=== PATIENT | female | born 1950 | race Caucasian/White ===

== ENCOUNTER 2019-10-04 08:14 | Inpatient (IN) | payer OTHER ==
[~2019-10-04] VITALS: Ht 165.1 cm; Wt 79.4 kg
[~2019-10-04 08:14] MED LIST: CARI350T27 PO; IBUP-1955 PO; LEVO50TA8 PO; METF500T PO; METR500T PO; SIMV20TA2 PO
--- NOTE | 2019-10-04 08:24 | NUR ---
BIB RA C/O ABDOMINAL PAIN SINCE YESTERDAY, TO ER BED 10, HOOKED TO MONITOR, CHANGED TO HOSP GOWN, PROVIDED W WARM BLANKET, AOx4, BREATHING EVEN AND UNLABORED, NAD NOTED. AWAITING MD HUBBARD.
--- NOTE | 2019-10-04 09:15 | NUR ---
DR MACIEL AT BEDSIDE
[2019-10-04] MEDS ORDERED: MORPHINE SULFATE INJ 4 MG/ML DISP.SYRIN ONE (09:22)
[2019-10-04 09:24] LABS: BASOPHILS % (AUTO) 0.2 % (0.0-2.0); EOSINOPHILS % (AUTO) 0.1 % (0.0-6.0); HEMATOCRIT 32 % (33-45); HEMOGLOBIN 10.3 g/dL (11.5-14.8); LYMPHOCYTES # (AUTO) 0.5 /CMM (0.8-4.8); LYMPHOCYTES % (AUTO) 6.9 % (20.0-44.0); MEAN CORPUSCULAR HGB CONC 32 g/dl (31.0-36.0); MEAN CORPUSCULAR VOLUME 87 fL (82-100); MONOCYTES # (AUTO) 0.4 /CMM (0.1-1.30); MONOCYTES % (AUTO) 5.4 % (2.0-12.0); NEUTROPHILS # (AUTO) 5.7 /CMM (1.8-8.9); NEUTROPHILS % (AUTO) 87.4 % (43.0-81.0); PLATELET COUNT (AUTO) 173 /CMM (150-450); RED BLOOD CELL COUNT(AUTO) 3.64 MIL/uL (4.0-5.2); WHITE BLOOD COUNT (AUTO) 6.6 K/uL (4.3-11.0)
[2019-10-04 09:26] LABS: APPEARANCE,URINE Clear (CLEAR); BILIRUBIN,URINE Negative (NEGATIVE); BLOOD, URINE Negative Ery/uL (NEGATIVE); COLOR,URINE Yellow (YELLOW); KETONES,URINE Negative (NEGATIVE); LEUKOCYTE ESTERASE ,URINE Negative (NEGATIVE); NITRITE, URINE Negative (NEGATIVE); PH,URINE 7.5 (5.0-8.0); PROTEIN,URINE Negative (NEGATIVE); UGLUCOSE Negative (NEGATIVE); UROBILINOGEN,URINE 0.2 EU/dL (0.2)
[2019-10-04] MEDS ORDERED: ONDANSETRON HCL/PF 4 MG/2 ML VIAL ONE (09:27)
[2019-10-04 09:29] LABS: CALCIUM, SERUM 11.5 mg/dL (8.5-10.1); CARBON DIOXIDE 30 mmol/L (21-32); CHLORIDE 103 mmol/L (98-107); CREATININE 0.8 mg/dL (0.6-1.3); GLUCOSE 185 mg/dL (74-106); SODIUM SERUM 141 mmol/L (136-145); UREA NITROGEN, BLOOD 11 mg/dL (7-18)
[2019-10-04] MEDS ORDERED: MORPHINE SULFATE INJ 2 MG/ML DISP.SYRIN IV ONE ×2 (09:30)
[2019-10-04] MEDS ORDERED: IV NS 0.9% 1,000 ML BAG IV ONE (09:30)
[2019-10-04 09:41] LABS: ALANINE AMINOTRANSFERASE 33 U/L (12-78); ALBUMIN 3.5 g/dL (3.4-5.0); ALKALINE PHOSPHATASE 51 U/L (46-116); ASPARTATE AMINOTRANSFERASE 46 U/L (15-37); BILIRUBIN,DIRECT 0.8 mg/dL (0.0-0.2); TOTAL PROTEIN, SERUM 7.9 g/dL (6.4-8.2)
--- NOTE | 2019-10-04 09:47 | NUR ---
LIGHT ARMORED RECONNAISSANCE OFFICER AT BEDSIDE
[2019-10-04] MEDS ORDERED: CT SWABBABLE VALVE TRANS SET 1 EA INFUS.SET MC ONE (09:55)
[2019-10-04] MEDS ORDERED: IOHEXOL-300 100 ML VIAL IV ONE (09:55)
[2019-10-04] MEDS ORDERED: IV NS 0.9% 250 ML IV ONE (09:55)
[2019-10-04 10:44] LABS: LIPASE 46264 U/L (73-393)
[2019-10-04] MEDS ORDERED: PIPERACILLIN /TAZOBACTAM 3.375 G in IV D5W 50 ML IV ONE (11:30)
--- NOTE | 2019-10-04 11:33 | NUR ---
PAGED SURGERY PANTS MAKER.
[2019-10-04] MEDS ORDERED: PIPERACILLIN /TAZOBACTAM 3.375 G VIAL IV ONE (11:36)
--- NOTE | 2019-10-04 11:44 | NUR ---
CALLED NURSING SUP FOR M/S BED.
[2019-10-04] MEDS ORDERED: METO-357 PO (11:50)
[2019-10-04] MEDS ORDERED: LEVO75TA7 PO (11:50)
[2019-10-04] MEDS ORDERED: LISI-603 PO (11:50)
[2019-10-04] MEDS ORDERED: METF500T20 PO (11:50)
[2019-10-04] MEDS ORDERED: ATOR10TA PO (11:50)
--- NOTE | 2019-10-04 11:50 | NUR ---
PAGED [facility].
[2019-10-04] MEDS ORDERED: ONDANSETRON HCL/PF 4 MG/2 ML VIAL IV ONE (13:00)
--- NOTE | 2019-10-04 13:15 | NUR ---
NURSING SUP GAVE M/S BED 315-2.
--- NOTE | 2019-10-04 13:33 | NUR ---
REPORT GIVEN TO NATHALIE LEES OF MS UNIT
[2019-10-04] MEDS ORDERED: DEXTROSE 50%-WATER 50 ML DISP.SYRIN IV PRN (14:00)
[2019-10-04] MEDS ORDERED: hydrALAZINE HCL IV 20 MG VIAL IV PRN (14:00)
[2019-10-04] MEDS ORDERED: MAG HYDROX/AL HYDROX/SIMETH 30 ML UDC PO PRN (14:00)
[2019-10-04] MEDS ORDERED: MAGNESIUM HYDROXIDE 30 ML UDC PO PRN (14:00)
[2019-10-04] MEDS ORDERED: Z GUARD REMEDY 2 OZ OINT TP PRN (14:00)
[2019-10-04] MEDS ORDERED: *INSULIN REGULAR(HUMULIN R)HUM 100 UNIT/ML VIAL SQ PRN (14:00)
[2019-10-04] MEDS ORDERED: ACETAMINOPHEN 325 MG TABLET PO PRN (14:00)
[2019-10-04] MEDS ORDERED: ONDANSETRON HCL/PF 4 MG/2 ML VIAL IVP PRN (14:00)
[2019-10-04 14:15] VITALS: BP 128/72
--- NOTE | 2019-10-04 14:15 | NUR ---
Received patient awake alert and oriented x4. Breathing unlabored and even , saturation above 95 % on room air. Patient stated she has abdominal pain 4/10. Abdomen distended and firm.Patient steady and able to use bathroom with assistance. Patient adm. to med.surg and seen by Margaret Malik HEADING MACHINE OPERATOR. Plan of care discussed with the patient; patient verbalized understanding. Patient NPO , IV fluids ordered, IV line to the right AC G18 Flushing well. Skin inspected and intact. Safety precautions implemented and call light within reach. Will continue to monitor and f/u with adm.orders.
[2019-10-04] MEDS: IV D5/0.45 NACL 1,000 ML IV PRN (15:27)
[2019-10-04] MEDS: MORPHINE SULFATE INJ 2 MG/ML DISP.SYRIN IV PRN ×2 (15:51→20:12)
[2019-10-04 16:00] VITALS: BP 124/76
[2019-10-04] MEDS: BLOOD SUGAR DIAGNOSTIC 1 EACH STRIP VI SCH ×2 (17:30→22:17)
--- NOTE | 2019-10-04 19:16 | NUR ---
Report given to night club manager nurse
[2019-10-04 20:00] VITALS: BP 137/72
--- NOTE | 2019-10-04 20:00 | NUR ---
MS RN NOTES RECEIVED PATIENT AWAKE IN BED WITH NO DISTRESS NOTED. CALL LIGHT WITHIN REACH. FAMILY AT BEDSIDE. NO C/O PAIN OR DISCOMFORT. NPO STATUS OBSERVED AND MAINTAINED. PERIPHERAL LINE INTACT AND PATENT. ENCOURAGED USE OF CALL LIGHT FOR ASSISTANCE AND VERBALIZED GOOD UNDERSTANDING. BED IN LOW LOCK SETTING. ROOM FREE OF CUTTER AND BELONGINGS KEPT NEAR BEDSIDE. PATIENT VERBALIZED GOOD UNDERSTANDING. WILL CONTINUE TO MONITOR.
[2019-10-04] MEDS: PIPERACILLIN /TAZOBACTAM 3.375 G in IV D5W 100 ML IV SCH (20:11)
[2019-10-05] MEDS: MORPHINE SULFATE INJ 2 MG/ML DISP.SYRIN IV PRN ×4 (04:52→23:36)
[2019-10-05] MEDS: PIPERACILLIN /TAZOBACTAM 3.375 G in IV D5W 100 ML IV SCH ×3 (04:52→20:55)
[2019-10-05] MEDS: BLOOD SUGAR DIAGNOSTIC 1 EACH STRIP VI SCH ×4 (06:34→22:38)
--- NOTE | 2019-10-05 06:36 | NUR ---
MS RN NOTES PATIENT ASLEEP IN BED WITH NO DISTRESS NOTED. CALL LIGHT WITHIN REACH. ALL DUE MEDS GIVEN ORDERED WITH NO ASE. NO FURTHER C/O PAIN OR DISCOMFORT. PERIPHERAL LINES INTACT AND PATENT. NPO STATUS OBSERVED AND MAINTAINED AT ALL TIMES. BED IN LOW LOCK SETTING. ROOM FREE OF CLUTTER AND BELONGINGS KEPT NEAR BEDSIDE. WILL ENDORSE TO ONCOMING SHIFT.
[2019-10-05 07:03] LABS: BASOPHILS % (AUTO) 0.9 % (0.0-2.0); EOSINOPHILS % (AUTO) 1.6 % (0.0-6.0); HEMATOCRIT 27 % (33-45); HEMOGLOBIN 8.8 g/dL (11.5-14.8); LYMPHOCYTES # (AUTO) 0.7 /CMM (0.8-4.8); LYMPHOCYTES % (AUTO) 23.6 % (20.0-44.0); MEAN CORPUSCULAR HGB CONC 33 g/dl (31.0-36.0); MEAN CORPUSCULAR VOLUME 86 fL (82-100); MONOCYTES # (AUTO) 0.3 /CMM (0.1-1.30); MONOCYTES % (AUTO) 10.5 % (2.0-12.0); NEUTROPHILS # (AUTO) 1.9 /CMM (1.8-8.9); NEUTROPHILS % (AUTO) 63.4 % (43.0-81.0); PLATELET COUNT (AUTO) 129 /CMM (150-450); RED BLOOD CELL COUNT(AUTO) 3.13 MIL/uL (4.0-5.2)
[2019-10-05 07:32] LABS: ALBUMIN 2.9 g/dL (3.4-5.0); BILIRUBIN,TOTAL 1.2 mg/dL (0.2-1.0); CALCIUM, SERUM 9.5 mg/dL (8.5-10.1); CREATININE 0.8 mg/dL (0.6-1.3); MAGNESIUM 1.4 mg/dL (1.8-2.4); PHOSPHORUS 4.8 mg/dL (2.5-4.9); TOTAL PROTEIN, SERUM 6.8 g/dL (6.4-8.2)
[2019-10-05 08:00] VITALS: BP 146/70
[2019-10-05 08:00] LABS: POTASSIUM 2.6 mmol/L (3.5-5.1)
[2019-10-05] MEDS: POTASSIUM CL. PREMIX PERIPHER. 50 ML IV SCH ×5 (09:21→17:27)
[2019-10-05] MEDS ORDERED: Magnesium 1GM/D5W 100ML PREMIX 100 ML IV SCH (09:27)
[2019-10-05] MEDS ORDERED: POTASSIUM CHLORIDE 10 MEQ/50 ML PREMIXED IVPB FOR PERIPHERAL LINE IV SCH (10:00)
[2019-10-05] MEDS: IV D5/0.45 NACL 1,000 ML IV PRN (11:20)
[2019-10-05 14:12] LABS: BILIRUBIN,DIRECT 0.4 mg/dL (0.0-0.2); BILIRUBIN,TOTAL 1.2 mg/dL (0.2-1.0)
[2019-10-05 16:00] VITALS: BP 132/69
[2019-10-05] MEDS: MAGNESIUM OXIDE 400 MG TABLET PO SCH ×2 (17:56→22:26)
--- NOTE | 2019-10-05 18:27 | NUR ---
Patient resting in bed. VS are stable and within baseline , afebrile, on room air . Abdominal pain at tolerable level /10.Patient medicated as needed. Clear liquid diet tolerated well with N/V . IV fluids running as ordered, Potassium infusing as ordered. Safety precautions in place, call light within reach. Will endorse to next shift for OLIVE
--- NOTE | 2019-10-05 19:50 | NUR ---
RN NOTES RECEIVED PATIENT AWAKE, SITTING IN BED, FAMILY MEMBER AT BEDSIDE, NO SIGNS OF ACUTE DISTRESS NOTED, DENIES ANY PAIN OR DISCOMFORT AT THIS TIME, SAFETY MEASURES AT BEDSIDE, CALL LIGHT WITHIN EASY REACH, KEEP CLEAN DRY AND COMFORTABLE, IV ACCESS INTACT AND PATENT, ALL NEEDS ANTICIPATED, WILL CONTINUE TO MONITOR ACCORDINGLY.
[2019-10-05 20:32] VITALS: BP 157/81
[2019-10-06] MEDS: PIPERACILLIN /TAZOBACTAM 3.375 G in IV D5W 100 ML IV SCH ×3 (04:25→21:28)
[2019-10-06] MEDS: IV D5/0.45 NACL 1,000 ML IV PRN (06:02)
--- NOTE | 2019-10-06 07:15 | NUR ---
RN NOTES ALL NEEDS ATTENDED AND MET, ABLE TO REST AND SLEPT AT INTERVALS, SAFETY MEASURES IN PLACED, CALL LIGHT WITHIN EASY REACH. ENDORSED TO AM NURSE FOR CONTINUITY OF CARE.
[2019-10-06] MEDS: BLOOD SUGAR DIAGNOSTIC 1 EACH STRIP VI SCH ×4 (07:17→21:48)
--- NOTE | 2019-10-06 07:34 | NUR ---
MS RN OPENING NOTES RECEIVED PATIENT IN BED, AWAKE, A/O X 4. PATIENT BREATHING ON ROOM AIR WITH NO SIGNS OF DISTRESS OR SOB AT THIS TIME. PATIENT IN MILD PAIN. RAC GAUGE # 18 SL PRESENT AND INTACT. RFA # 22 INTACT INFUSING D5 1/2 NS AT 100 CC/HR. SAFETY PRECAUTIONS IN PLACE: BED IN LOW POSITION AND LOCKED, RAILS UP X 2, CALL LIGHT WITHIN REACH. WILL CONTINUE TO MONITOR PATIENT.
[2019-10-06 08:00] VITALS: BP 140/78
[2019-10-06 08:20] LABS: EOSINOPHILS % (AUTO) 4.6 % (0.0-6.0); HEMATOCRIT 26 % (33-45); HEMOGLOBIN 8.6 g/dL (11.5-14.8); LYMPHOCYTES # (AUTO) 0.8 /CMM (0.8-4.8); LYMPHOCYTES % (AUTO) 33.1 % (20.0-44.0); MEAN CORPUSCULAR HGB CONC 33 g/dl (31.0-36.0); MEAN CORPUSCULAR VOLUME 85 fL (82-100); MONOCYTES # (AUTO) 0.3 /CMM (0.1-1.30); MONOCYTES % (AUTO) 12.2 % (2.0-12.0); NEUTROPHILS # (AUTO) 1.2 /CMM (1.8-8.9); NEUTROPHILS % (AUTO) 49.1 % (43.0-81.0); PLATELET COUNT (AUTO) 128 /CMM (150-450); RED BLOOD CELL COUNT(AUTO) 3.11 MIL/uL (4.0-5.2); WHITE BLOOD COUNT (AUTO) 2.5 K/uL (4.3-11.0)
[2019-10-06 08:37] LABS: ALBUMIN 2.8 g/dL (3.4-5.0); BILIRUBIN,DIRECT 0.3 mg/dL (0.0-0.2); CALCIUM, SERUM 8.5 mg/dL (8.5-10.1); CREATININE 0.7 mg/dL (0.6-1.3); MAGNESIUM 1.5 mg/dL (1.8-2.4); PHOSPHORUS 3.9 mg/dL (2.5-4.9); POTASSIUM 2.9 mmol/L (3.5-5.1); TOTAL PROTEIN, SERUM 6.7 g/dL (6.4-8.2)
[2019-10-06] MEDS: LEVOTHYROXINE SODIUM 75 MCG TABLET PO SCH (08:41)
[2019-10-06] MEDS: HYDROCODONE/APAP 5/325MG 1 EACH TABLET PO PRN (10:06)
[2019-10-06 10:07] LABS: EOSINOPHILS % (MANUAL) 4 % (0-4); LYMPHOCYTES % (MANUAL) 37 % (16-48); MONOCYTES % (MANUAL) 7 % (0-11.0); NEUTROPHILS % (MANUAL) 52 (42-76)
[2019-10-06 16:00] VITALS: BP 127/65
--- NOTE | 2019-10-06 18:42 | NUR ---
MS RN CLOSING NOTES PATIENT AWAKE, PLAYING WITH FRIEND SOME TABLE GAMES. A/O X4. PATIENT BREATHING ON ROOM AIR WITH NO SIGNS OF DISTRESS OR SOB AT THIS TIME. PATIENT IN MILD PAIN. RAC GAUGE # 18 SL PRESENT AND INTACT. RFA # 22 INTACT INFUSING D5 1/2 NS AT 100 CC/HR. ALL NEEDS ATTENDED TOO THROUGHOUT THE DAY. SAFETY PRECAUTIONS IN PLACE: BED IN LOW POSITION AND LOCKED, RAILS UP X 2, CALL LIGHT WITHIN REACH. WILL ENDORSE TO DATABASE MARKETING MANAGER NURSE.
--- NOTE | 2019-10-06 19:50 | NUR ---
MS/RN OPENING NOTES RECEIVED PATIENT IN BED, AWAKE, ALERT X3, ABLE TO VERBALIZE NEEDS, MOTIVATED TO SELF CARE, FAMILY INVOLVED, RESPIRATIONS EVEN AND UNLABORED, DENIES PAIN, ABLE TO AMBULATE, ON IV FLUIDS. IV SITE ON RIGHT AC, PATENT. DISCUSSED PLAN OF CARE. RECEIVED ENDORSEMENT FROM AM RN FOR OLIVE. WILL CONTINUE TO MONITOR.
[2019-10-06 20:00] VITALS: BP 148/90
[2019-10-06] MEDS: MAGNESIUM OXIDE 400 MG TABLET PO SCH (21:37)
[2019-10-06] MEDS: MORPHINE SULFATE INJ 2 MG/ML DISP.SYRIN IV PRN (22:31)
--- NOTE | 2019-10-06 22:40 | NUR ---
MS/RN NOTES PATIENT WITH SEVERE PAIN IN ABDOMEN, OBSERVED GUARDING AND GRIMACE, 8/10 PAIN. REQUESTED FOR PAIN MEDICATION NEEDED MORPHINE IVP 2MG TOLERATED MEDICATION, VITAL SIGN TAKEN ELEVATED BP OF 140/70. TO MONITOR FOR ANY CHANGES AND RELIEF.
--- NOTE | 2019-10-07 01:46 | NUR ---
MS/RN NOTES RECEIVED MD ORDER TO REPLACE POTASSIUM FOR POTASSIUM LEVEL OF 2.9 WITH ORDER TO GIVE K DUR 60 MEQ PO. MD ORDER CARRIED OUT.
[2019-10-07] MEDS ORDERED: POTASSIUM CHLORIDE 20 MEQ TAB.PRT.SR PO ONE (02:00)
[2019-10-07] MEDS: PIPERACILLIN /TAZOBACTAM 3.375 G in IV D5W 100 ML IV SCH ×3 (05:19→20:20)
[2019-10-07] MEDS: BLOOD SUGAR DIAGNOSTIC 1 EACH STRIP VI SCH ×4 (07:01→21:33)
--- NOTE | 2019-10-07 07:15 | NUR ---
MS RN OPENING NOTES RECEIVED PATIENT IN BED, ALERT AND AWAKE. NO SOB. DENIES ANY C/O PAIN NOR DISCOMFORT AT THIS TIME. PER PATIENT, "DID NOT SLEEP WELL LAST NIGHT." RIGHT AC # 22 INTACT AND PATENT INFUSING D5 1/2 NS @ 100 ML/HR KAYLYN WELL. BED IN LOWEST POSITION, LOCKED. AMBULATORY WITH STEADY GAIT. BED SIDERAILS UP X2. CALL LIGHT WITHIN REACH.
--- NOTE | 2019-10-07 07:30 | NUR ---
315-2 MS/RN CLOSING NOTES PATIENT ALERT, ORIENTED X3, ABLE TO VERBALIZE NEEDS, ABLE TO DO SELF CARE, ON OAIN MANAGEMENT MONITOIRNG FOR ABDOMINAL PAIN. RESPIRATIONS EVEN AND UNLABORED. MONITORED FOR HYPO/HYPERGLYCEMIA, ATTENDED TO ALL NEEDS. BED LOCKED, CALL LIGHTS WITHIN REACH. ON IV ANTIBIOTIC THERAPY,WILL MONITOR.
[2019-10-07] MEDS: IV D5/0.45 NACL 1,000 ML IV PRN (07:48)
[2019-10-07 07:55] VITALS: BP 149/83
[2019-10-07] MEDS: LEVOTHYROXINE SODIUM 75 MCG TABLET PO SCH (08:17)
--- NOTE | 2019-10-07 08:17 | NUR ---
MS RN NOTES PATIENT NPO AT THIS TIME, SCHEDULED FOR HIDA SCAN
[2019-10-07 08:20] LABS: EOSINOPHILS % (AUTO) 5.8 % (0.0-6.0); HEMATOCRIT 28 % (33-45); HEMOGLOBIN 8.9 g/dL (11.5-14.8); LYMPHOCYTES # (AUTO) 0.9 /CMM (0.8-4.8); MEAN CORPUSCULAR HGB CONC 32 g/dl (31.0-36.0); MEAN CORPUSCULAR VOLUME 85 fL (82-100); MONOCYTES # (AUTO) 0.4 /CMM (0.1-1.30); MONOCYTES % (AUTO) 12.2 % (2.0-12.0); NEUTROPHILS # (AUTO) 1.7 /CMM (1.8-8.9); PLATELET COUNT (AUTO) 149 /CMM (150-450); RED BLOOD CELL COUNT(AUTO) 3.27 MIL/uL (4.0-5.2); WHITE BLOOD COUNT (AUTO) 3.2 K/uL (4.3-11.0)
--- NOTE | 2019-10-07 08:22 | NUR ---
MS RN NOTES PATIENT OFF UNIT, PATIENT WENT FOR HIDA SCAN.
[2019-10-07 08:36] LABS: CALCIUM, SERUM 8.4 mg/dL (8.5-10.1); CREATININE 0.7 mg/dL (0.6-1.3); MAGNESIUM 1.9 mg/dL (1.8-2.4); PHOSPHORUS 3.4 mg/dL (2.5-4.9); POTASSIUM 3.5 mmol/L (3.5-5.1)
[2019-10-07 09:41] LABS: ALBUMIN 2.9 g/dL (3.4-5.0); BILIRUBIN,DIRECT 0.3 mg/dL (0.0-0.2); BILIRUBIN,TOTAL 0.9 mg/dL (0.2-1.0); TOTAL PROTEIN, SERUM 6.9 g/dL (6.4-8.2)
--- NOTE | 2019-10-07 10:11 | NUR ---
MS RN NOTE PATIENT RETURNED FROM HIDA SCAN BUT WILL COMPLETE THE REST OF THE TEST LATER INSTRUCTED PER PATIENT. PATIENT REMAINS NPO.
--- NOTE | 2019-10-07 10:27 | NUR ---
NM: HIDA SCAN WAS COMPLETED. TECH:RB
[2019-10-07] MEDS: MORPHINE SULFATE INJ 2 MG/ML DISP.SYRIN IV PRN ×2 (13:42→19:46)
[2019-10-07 16:00] VITALS: BP 146/73
--- NOTE | 2019-10-07 18:30 | NUR ---
MS RN CLOSING NOTES ALERT AND ORIENTED X4. NO S/S OF RESPIRATORY DISTRESS. DENIES ANY C/O PAIN NOR DISCOMFORT AT THIS TIME. DENIES N/V/D. RIGHT AC # 18 INTACT AND PATENT INFUSING D5 1/2 NS @ 100 ML/HR KAYLYN WELL. BED IN LOWEST POSITION, LOCKED. ABLE TO VERBALIZE NEEDS. BED SIDERAILS UP X2. CALL LIGHT WITHIN REACH. IN NO APPARENT DISTRESS.
--- NOTE | 2019-10-07 19:45 | NUR ---
MS RN OPENING NOTES RECEIVED PATIENT FROM MORNING SHIFT, ALERT AND ORIENTED X 3. VERBALLY RESPONSIVE AND ABLE TO FOLLOW DIRECTIONS. FAMILY ON BEDSIDE. BREATHING REGULAR AND UNLABORED ON ROOM AIR. RIGHT AC G20 IV LINE INTACT AND PATENT, FLUSHING WELL WITH NO BLEEDING OR S/S OF INFILTRATION NOTED. BODY ASSESSMENT DONE, SKIN REMAINED INTACT, CLEAN AND DRY. COMPLAINED OF 8/10 ABDOMINAL PAIN. NON-PHARMACOLOGICAL INTERVENTIONS DONE. BED LOW AND LOCKED ON SEMI FOWLERS POSITION. CALL LIGHT IN REACH. WILL CONTINUE TO MONITOR.
--- NOTE | 2019-10-07 19:50 | NUR ---
MS RN NOTES COMPLAINED OF 8/10 ABDOMINAL PAIN, MORPHINE 2MG GIVEN VIA IV PUSH. NON-PHARMACOLOGICAL INTERVENTIONS DONE. VITAL SIGNS WNL. WILL CONTINUE TO MONITOR.
[2019-10-07 20:00] VITALS: BP 133/74
[2019-10-07] MEDS: MAGNESIUM OXIDE 400 MG TABLET PO SCH (21:18)
[2019-10-07 22:00] VITALS: BP 133/74
--- NOTE | 2019-10-07 22:00 | NUR ---
MS RN NOTES BS 100mg/dl, NO INSULIN COVERAGE NEEDED. WILL CONTINUE TO MONITOR.
[2019-10-08] MEDS: PIPERACILLIN /TAZOBACTAM 3.375 G in IV D5W 100 ML IV SCH ×3 (04:00→20:35)
[2019-10-08] MEDS: HYDROCODONE/APAP 5/325MG 1 EACH TABLET PO PRN ×2 (04:10→23:53)
--- NOTE | 2019-10-08 04:10 | NUR ---
MS RN NOTES COMPLAINED OF 7/10 ABDOMINAL PAIN, NORCO 5/325 GIVEN BY MOUTH. NON-PHARMACOLOGICAL INTERVENTIONS PROVIDED. VITAL SIGN WNL. WILL CONTINUE TO MONITOR.
--- NOTE | 2019-10-08 06:30 | NUR ---
MS RN CLOSING NOTES PATIENT IN BED ALERT AND ORIENTED X 3. VERBALLY RESPONSIVE AND ABLE TO FOLLOW DIRECTIONS. BREATHING REGULAR AND UNLABORED ON ROOM AIR. RIGHT AC G20 IV LINE PATENT AND INFUSING WELL. COMPLAINED OF 1/10 ABDOMINAL PAIN, NON-PHARMACOLOGICAL INTERVENTIONS DONE. BED LOW AND LOCKED ON SEMI FOWLERS POSITION. CALL LIGHT IN REACH. WILL ENDORSE TO MORNING SHIFT FOR OLIVE.
[2019-10-08] MEDS: BLOOD SUGAR DIAGNOSTIC 1 EACH STRIP VI SCH ×4 (06:33→21:37)
[2019-10-08] MEDS: INSULIN REGULAR, HUMAN 100 UNIT/ML 3 ML VIAL SQ PRN ×2 (06:33→11:28)
--- NOTE | 2019-10-08 07:28 | NUR ---
MS/RN OPENING NOTES RECEIVED PATIENT IN BED ALERT AND ORIENTED X 4. VERBALLY RESPONSIVE AND ABLE TO FOLLOW DIRECTIONS. BREATHING REGULAR AND UNLABORED ON ROOM AIR. 1V FLUID OF D51/2 NS AT 100CC/HOUR, RIGHT AC G18 IV LINE PATENT AND INFUSING WELL. COMPLAINED OF 1/10 ABDOMINAL PAIN, NON-PHARMACOLOGICAL INTERVENTIONS DONE. BED LOW AND LOCKED ON SEMI FOWLERS POSITION. CALL LIGHT IN REACH.
[2019-10-08 08:00] VITALS: BP 131/68
[2019-10-08] MEDS: LEVOTHYROXINE SODIUM 75 MCG TABLET PO SCH (08:16)
--- NOTE | 2019-10-08 11:29 | NUR ---
MS/RN NOTES BS 139MG/DL PATIENT REFUSED 2 UNIT INSULIN.
--- NOTE | 2019-10-08 11:39 | NUR ---
MS/RN NOTES FULL LIQUID PER DOCTOR TREJO.
[2019-10-08 16:00] VITALS: BP 152/77
--- NOTE | 2019-10-08 17:56 | NUR ---
MS/RN NOTES BS 104MG/DL 0 COVERAGE
--- NOTE | 2019-10-08 18:41 | NUR ---
MS/RN CLOSING NOTES PATIENT IS ON BED. PATIENT IS ALERT AND ORIENTED X4. NO RESPIRATORY DISTRESS NOTED. DENIES PAIN AT THIS TIME. SATURATION OXYGEN OF 97% IN ROOM AIR. SEEN AND EXAMINED BY MD WITH ORDERS MADE AND CARRIED OUT. ALL DUE MEDS WAS GIVEN. SAFETY PRECAUTION IS IN PLACED. BED IN LOWEST POSITION. SIDE RAILS UP X2. CALL LIGHT WITHIN REACH. WILL ENDORSED TO SANITATION WORKER HOSING MACHINERY FOR OLIVE.
[2019-10-08 20:00] VITALS: BP 135/71
--- NOTE | 2019-10-08 20:00 | NUR ---
MS RN NOTES RECEIVED PATIENT AWAKE IN BED WITH NO DISTRESS NOTED. CALL LIGHT WITHIN REACH. NO C/O PAIN OR DISCOMFORT. PERIPHERAL LINE INTACT AND PATENT. ENCOURAGED USE OF CALL LIGHT FOR ASSISTANCE AND VERBALIZED GOOD UNDERSTANDING. BED IN LOW LOCK SETTING. ROOM FREE OF CLUTTER AND BELONGINGS KEPT NEAR BEDSIDE. WILL CONTINUE TO MONITOR
[2019-10-08] MEDS: MAGNESIUM OXIDE 400 MG TABLET PO SCH (21:37)
[2019-10-09] MEDS: PIPERACILLIN /TAZOBACTAM 3.375 G in IV D5W 100 ML IV SCH ×3 (04:24→20:07)
--- NOTE | 2019-10-09 06:48 | NUR ---
MS RN NOTES PATIENT ASLEEP IN BED WITH NO DISTRESS NOTED. CALL LIGHT WITHIN REACH. NO C/O PAIN OR DISCOMFORT. ALL DUE MEDS GIVEN ORDERED WITH NO ASE. NPO STARTED AT MIDNIGHT AND MAINTAINED THROUGHOUT SHIFT. PERIPHERAL LINE INTACT AND PATENT. BED IN LOW LOCK SETTING. ROOM FREE OF CLUTTER AND BELONGINGS KEPT NEAR BEDSIDE. WILL ENDORSE TO ONCOMING SHIFT.
[2019-10-09] MEDS: BLOOD SUGAR DIAGNOSTIC 1 EACH STRIP VI SCH ×4 (07:09→22:15)
[2019-10-09] MEDS ORDERED: ANESTHESIA TRAY IN PYXIS 1 EA TRAY MC ONE (07:09)
[2019-10-09] MEDS ORDERED: HYDROMORPHONE INJ 2 MG/ML DISP.SYRIN ONE (07:15)
[2019-10-09] MEDS ORDERED: ROCURONIUM BROMIDE 50 MG/5 ML ONE (07:15)
--- NOTE | 2019-10-09 07:31 | NUR ---
MS/RN OPENING NOTES RECEIVED PATIENT SLEEPING ON BED. NO RESPIRATORY DISTRESS NOTED. NO COMPLAINED OF PAIN. PRE OP SURGERY CHECKLIST DONE. PATIENT LAPPER BY OR NURSE VIA MEDICAL BED AT 0715.
[2019-10-09] MEDS ORDERED: LIDOCAINE HCL/MPF 1% 30 ML VIAL IJ ONE (07:41)
[2019-10-09] MEDS ORDERED: BUPIVACAINE MPF 0.5% W/EPI INJ 30 ML VIAL ONE (07:42)
[2019-10-09] MEDS: LEVOTHYROXINE SODIUM 75 MCG TABLET PO SCH (09:00)
[2019-10-09 10:00] VITALS: BP 137/67
--- NOTE | 2019-10-09 10:13 | NUR ---
MS/RN NOTES PATIENT CAME FROM RECOVERY ROOM. PATIENT IS ALERT AND ORIENTED. POST ORDER VITAL SIGN PER ROUTINE, CLEAR LIQUIDS ADVANCE TOMORROW, ACTIVITIES TOLERATED. ZOFRAN 4 MG IV Q6HR PRN, FOR NAUSEA AND VOMITING, DILAUDIL 1MG IV Q 3HOUR PRN FOR SEVERE PAIN, NORCO 10/325MG P.O Q 4HR PRN MODERATE PAIN, PROTONIX 40MG P.O ONCE A DAY, MOTRIN 800MG 1 TAB P.O , NEURONTIN 300MG 1 TAB, TYLENOL 325 MG 2 TAB, CBC BMP MG PHOSPHOROUS IN AM 10/10/2019. DISCHARGED HOME TOMORROW IF STABLE. SHOULD SEE DR. HOOD IN 1 WEEK.
--- NOTE | 2019-10-09 12:00 | NUR ---
MS/RN BS 164 MG/DL PATIENT REFUSED FOR INSULIN ADMINISTRATION
[2019-10-09] MEDS: INSULIN REGULAR, HUMAN 100 UNIT/ML 3 ML VIAL SQ PRN (12:31)
[2019-10-09] MEDS ORDERED: HYDROCODONE/APAP 10/325MG 1 EA TABLET PO PRN (13:30)
[2019-10-09] MEDS: HYDROMORPHONE 1 MG/1 ML DISP.SYRIN IV PRN (13:42)
[2019-10-09 14:00] LABS: ALBUMIN 3.2 g/dL (3.4-5.0); BILIRUBIN,TOTAL 0.9 mg/dL (0.2-1.0); CALCIUM, SERUM 7.9 mg/dL (8.5-10.1); CREATININE 0.7 mg/dL (0.6-1.3); POTASSIUM 3.7 mmol/L (3.5-5.1); TOTAL PROTEIN, SERUM 7.4 g/dL (6.4-8.2)
[2019-10-09 14:20] LABS: BASOPHILS % (AUTO) 0.6 % (0.0-2.0); EOSINOPHILS % (AUTO) 0.3 % (0.0-6.0); HEMATOCRIT 30 % (33-45); HEMOGLOBIN 9.7 g/dL (11.5-14.8); LYMPHOCYTES # (AUTO) 0.5 /CMM (0.8-4.8); LYMPHOCYTES % (AUTO) 11.8 % (20.0-44.0); MEAN CORPUSCULAR HGB CONC 33 g/dl (31.0-36.0); MEAN CORPUSCULAR VOLUME 84 fL (82-100); MONOCYTES # (AUTO) 0.1 /CMM (0.1-1.30); MONOCYTES % (AUTO) 1.5 % (2.0-12.0); NEUTROPHILS % (AUTO) 85.8 % (43.0-81.0); PLATELET COUNT (AUTO) 188 /CMM (150-450); RED BLOOD CELL COUNT(AUTO) 3.53 MIL/uL (4.0-5.2); WHITE BLOOD COUNT (AUTO) 4.7 K/uL (4.3-11.0)
[2019-10-09] MEDS: IBUPROFEN 400 MG TABLET PO SCH ×2 (14:43→22:16)
[2019-10-09] MEDS: ACETAMINOPHEN 325 MG TABLET PO SCH ×2 (14:43→22:15)
[2019-10-09] MEDS: GABAPENTIN 300 MG CAPSULE PO SCH ×2 (14:43→22:16)
[2019-10-09 16:00] VITALS: BP 116/73
--- NOTE | 2019-10-09 17:51 | NUR ---
MS/RN NOTES BS 278MG/DL PATIENT REFUSED TO ADMINISTERED INSULIN.
--- NOTE | 2019-10-09 18:32 | NUR ---
MS/RN CLOSING NOTES PATIENT IS LYING ON BED COMFORTABLY ALERT AND ORIENTED X 4. DENIES PAIN AT THIS TIME. NO RESPIRATORY DISTRESS NOTED. IVF OF NS 1L INFUSING 75ML/HR KEPT PATIENT DRY AND COMFORTABLE THE WHOLE TIME. SEEN AND EXAMINED BY MD WITH ORDERS MADE AND CARRIED OUT. ALL DUE MEDS WAS GIVEN. PATIENT IS AMBULATING IN THE [address] WAY.SAFETY PRECAUTION IS IN PLACED. BED IN LOWEST POSITION. CALL LIGHT WITHIN REACH. WILL ENDORSED TO FRUIT PEELER.
[2019-10-09 20:00] VITALS: BP 145/86
[2019-10-09] MEDS: MAGNESIUM OXIDE 400 MG TABLET PO SCH (22:15)
[2019-10-10] MEDS: HYDROMORPHONE 1 MG/1 ML DISP.SYRIN IV PRN ×2 (02:14→10:29)
--- NOTE | 2019-10-10 02:16 | NUR ---
MS RN NOTES: ABDOMINAL PAIN Patient in bed, c/o abdominal pain 8/10 denies nausea, no vomiting. Dilaudid indication and possible side effect reviewed with patient, verbalized understanding. IV Dilaudid given, will reassess.
[2019-10-10] MEDS: PIPERACILLIN /TAZOBACTAM 3.375 G in IV D5W 100 ML IV SCH ×2 (04:42→11:35)
[2019-10-10] MEDS: ACETAMINOPHEN 325 MG TABLET PO SCH ×3 (05:53→13:50)
[2019-10-10] MEDS: GABAPENTIN 300 MG CAPSULE PO SCH ×2 (05:54→13:46)
[2019-10-10] MEDS: IBUPROFEN 400 MG TABLET PO SCH ×2 (05:54→13:46)
--- NOTE | 2019-10-10 06:22 | NUR ---
MS RN NOTES AWAKE & RESPONSIVE. NOT IN ANY DISTRESS. NO SOB NOTED. DENIES ANY PAIN OR DISCOMFORT AT THIS TIME. WITH IV-HL PATENT & INTACT. MONITORED ACCORDINGLY. CALL LIGHT WITHIN REACH. BED IN LOWEST POSITION. SR UP X 2 FOR SAFETY. WILL ENDORSE TO NEXT SHIFT.
[2019-10-10] MEDS: IV D5/0.45 NACL 1,000 ML IV PRN (06:39)
[2019-10-10] MEDS: BLOOD SUGAR DIAGNOSTIC 1 EACH STRIP VI SCH ×3 (06:40→17:45)
[2019-10-10 07:09] LABS: BASOPHILS % (AUTO) 0.4 % (0.0-2.0); EOSINOPHILS % (AUTO) 0.3 % (0.0-6.0); HEMATOCRIT 32 % (33-45); HEMOGLOBIN 10.3 g/dL (11.5-14.8); LYMPHOCYTES # (AUTO) 1.5 /CMM (0.8-4.8); LYMPHOCYTES % (AUTO) 16.2 % (20.0-44.0); MEAN CORPUSCULAR HGB CONC 33 g/dl (31.0-36.0); MEAN CORPUSCULAR VOLUME 85 fL (82-100); MONOCYTES # (AUTO) 0.8 /CMM (0.1-1.30); MONOCYTES % (AUTO) 8.4 % (2.0-12.0); NEUTROPHILS # (AUTO) 6.9 /CMM (1.8-8.9); NEUTROPHILS % (AUTO) 74.7 % (43.0-81.0); PLATELET COUNT (AUTO) 278 /CMM (150-450); RED BLOOD CELL COUNT(AUTO) 3.73 MIL/uL (4.0-5.2); WHITE BLOOD COUNT (AUTO) 9.2 K/uL (4.3-11.0)
[2019-10-10] MEDS ORDERED: PANTOPRAZOLE 40 MG TABLET.DR PO SCH (07:30)
--- NOTE | 2019-10-10 07:38 | NUR ---
MS RN OPENING NOTES RECEIVED PATIENT ALERT AND AWAKE. NO SOB. DENIES ANY C/O PAIN NOR DISCOMFORT AT THIS TIME. DRESSING INTACT TO SURGERY INCISION SITE. LEFT HAND # 20 INTACT AND PATENT INFUSING D5 1/2 NS @ 100 ML/HR KAYLYN WELL. BED IN LOWEST POSITION, LOCKED. AMBULATORY WITH STEADY GAIT. BED SIDERAILS UP X2. CALL LIGHT WITHIN REACH.
[2019-10-10 08:00] VITALS: BP 136/71
[2019-10-10] MEDS: LEVOTHYROXINE SODIUM 75 MCG TABLET PO SCH (08:20)
[2019-10-10 08:30] LABS: ALBUMIN 3.5 g/dL (3.4-5.0); BILIRUBIN,DIRECT 0.3 mg/dL (0.0-0.2); BILIRUBIN,TOTAL 0.9 mg/dL (0.2-1.0); CALCIUM, SERUM 8.4 mg/dL (8.5-10.1); CREATININE 0.9 mg/dL (0.6-1.3); MAGNESIUM 1.9 mg/dL (1.8-2.4); POTASSIUM 3.5 mmol/L (3.5-5.1)
[2019-10-10] MEDS ORDERED: HYDR-4384 PO (10:45)
[2019-10-10 16:00] VITALS: BP 138/73
--- NOTE | 2019-10-10 19:13 | NUR ---
MS PRESS HAND NOTES ALERT AND AWAKE ORIENTED X4. NO SOB. DENIES ANY C/O PAIN NOR DISCOMFORT AT THIS TIME. DRESSING INTACT TO SURGERY INCISION SITE. NO S/S OF COMPLICATIONS OBSERVED. IV ACCESS REMOVED WITH CATHETER TIP INTACT WITH GAUZE DRESSING IN PLACE. DISCHARGE INSTRUCTIONS, EDUCATION AND PACKET GIVEN TO PATIENT. PATIENT PICKED UP BY FRIEND AND LEFT IN PRIVATE VEHICLE IN STABLE CONDITION.
== END 2019-10-10 19:00 | disposition home or self-care (01) | DRG 263 ==
LOC: ER 08:24 → MED 13:21
PROVIDERS: ADMIT Internal Medicine; ATTEND Internal Medicine
PROC: 0FB04ZX Excision of Liver, Percutaneous Endoscopic Approach, Diagnostic (ICD-10-PCS; principal; 2019-10-09)
PROC: 0FT44ZZ Resection of Gallbladder, Percutaneous Endoscopic Approach (ICD-10-PCS; principal; 2019-10-09)
DX: K80.00 Calculus of gallbladder with acute cholecystitis without obstruction (principal); K85.10 Biliary acute pancreatitis without necrosis or infection; K65.9 Peritonitis, unspecified; E87.2 Acidosis; K76.6 Portal hypertension; K56.7 Ileus, unspecified; K70.30 Alcoholic cirrhosis of liver without ascites; R16.2 Hepatomegaly with splenomegaly, not elsewhere classified; K70.9 Alcoholic liver disease, unspecified; K57.30 Diverticulosis of large intestine without perforation or abscess without bleeding; K29.80 Duodenitis without bleeding; E87.6 Hypokalemia; Z79.84 Long term (current) use of oral hypoglycemic drugs; D64.9 Anemia, unspecified; F10.10 Alcohol abuse, uncomplicated; E11.9 Type 2 diabetes mellitus without complications; E03.9 Hypothyroidism, unspecified; I70.8 Atherosclerosis of other arteries; Z90.710 Acquired absence of both cervix and uterus
CPT/HCPCS: 36415; 71045-TC; 74181-TC; 78226; 80048-TC; 80053-TC; 80076-TC; 81000-TC; 82247-TC; 82248-TC; 82962-TC; 83605-TC; 83690-TC; 83735-TC; 83880; 84100-TC; 85025-TC; 85610-TC; 85730-TC; 86850-TC; 87040-TC; 87081-TC; 88307-TC; 88313-TC; A9537; G0378; J0330; J1100; J1170; J1815; J1885; J2270; J2405; J2543; J2704; J2710; J3480; J3490; J7030; J7050; J7060; Q9967

== ENCOUNTER 2019-10-18 18:01 | Emergency (ER) | payer OTHER ==
[~2019-10-18] VITALS: Ht 157.5 cm; Wt 67.1 kg
[~2019-10-18 18:01] MED LIST changes: +ATOR10TA PO; -CARI350T27 PO; +HYDR-4384 PO; -IBUP-1955 PO; -LEVO50TA8 PO; +LEVO75TA7 PO; +LISI-603 PO; -METF500T PO; +METF500T20 PO; +METO-357 PO; -METR500T PO; -SIMV20TA2 PO
[2019-10-18 18:45] VITALS: BP 139/72
[2019-10-18] MEDS ORDERED: HYDROCODONE/APAP 5/325MG 1 EACH TABLET ONE (19:01)
--- NOTE | 2019-10-18 19:08 | NUR ---
ELI AND SUTURES REMOVED.
[2019-10-18] MEDS ORDERED: HYDROCODONE/APAP 5/325MG 1 EACH TABLET PO ONE (19:30)
== END 2019-10-18 19:08 | disposition home or self-care (01) ==
LOC: ER 18:03
DX: S31.119D Laceration without foreign body of abdominal wall, unspecified quadrant without penetration into peritoneal cavity, subsequent encounter (principal); E11.9 Type 2 diabetes mellitus without complications; E66.9 Obesity, unspecified; Z68.27 Body mass index [BMI] 27.0-27.9, adult; Z90.49 Acquired absence of other specified parts of digestive tract; Z90.710 Acquired absence of both cervix and uterus; Z98.890 Other specified postprocedural states; Z79.899 Other long term (current) drug therapy; X58.XXXD Exposure to other specified factors, subsequent encounter

== ENCOUNTER 2021-06-24 19:07 | Emergency (ER) | payer OTHER ==
[~2021-06-24] VITALS: Ht 157.5 cm; Wt 67.1 kg
[~2021-06-24 19:07] MED LIST changes: -LISI-603 PO; +LISI20TA30 PO; +METF-881 PO; -METF500T20 PO
--- NOTE | 2021-06-24 19:25 | NUR ---
PT BIBSELF C/O RT EYE SWELLING AND PAIN SINCE MONDAY. PT AAOX4 BREATHING EVENLY AND UNLABORED. PT ATTACHED TO MONITOR AND POX. PER PT, SHE HAS HAD THIS PROBLEM 3 TIMES PREVIOUSLY. PT GIVEN BLANKET AND CALL LIGHT WITHIN REACH
[2021-06-24] MEDS ORDERED: OXYC-128 PO (20:00)
[2021-06-24] MEDS ORDERED: CLINDAMYCIN HCL 150 MG CAPSULE PO ONE (20:00)
[2021-06-24] MEDS ORDERED: CLIN300C12 PO (20:00)
[2021-06-24] MEDS ORDERED: oxyCODONE/APAP (5/325 MG) 1 UDTAB TABLET PO ONE (20:00)
[2021-06-24] MEDS ORDERED: CLINDAMYCIN HCL 150 MG CAPSULE ONE (20:13)
[2021-06-24] MEDS ORDERED: oxyCODONE/APAP (5/325 MG) 1 UDTAB TABLET ONE (20:13)
--- NOTE | 2021-06-24 20:15 | NUR ---
Patient discharged to home in stable condition. Written and verbal after care instructions given. Patient verbalizes understanding of instruction. Pt ambulatory with a steady gait
[2021-06-24 20:19] VITALS: BP 104/62
== END 2021-06-24 20:15 | disposition home or self-care (01) ==
LOC: ER 19:09
DX: L03.213 Periorbital cellulitis (principal); I10 Essential (primary) hypertension; E11.9 Type 2 diabetes mellitus without complications; F10.10 Alcohol abuse, uncomplicated; F17.200 Nicotine dependence, unspecified, uncomplicated; Y90.9 Presence of alcohol in blood, level not specified; Z79.84 Long term (current) use of oral hypoglycemic drugs; Z90.710 Acquired absence of both cervix and uterus; Z90.49 Acquired absence of other specified parts of digestive tract; Z79.899 Other long term (current) drug therapy

== ENCOUNTER 2023-05-02 04:17 | Inpatient (IN) | payer OTHER ==
[~2023-05-02] VITALS: Ht 157.5 cm; Wt 73.0 kg
[~2023-05-02 04:17] MED LIST changes: +CLIN300C12 PO; +OXYC-128 PO
[2023-05-02] MEDS ORDERED: ACETAMINOPHEN 325 MG TABLET ONE (04:49)
[2023-05-02] MEDS ORDERED: ACETAMINOPHEN 325 MG TABLET PO ONE (05:00)
[2023-05-02 05:11] LABS: HEMATOCRIT 25 % (33-45); HEMOGLOBIN 8.2 g/dL (11.5-14.8); LYMPHOCYTES # (AUTO) 1.8 K/uL (0.8-4.8); LYMPHOCYTES % (AUTO) 23.1 % (20.0-44.0); MEAN CORPUSCULAR HEMOGLOBIN 30 PG (26.0-33.0); MEAN CORPUSCULAR HGB CONC 33 g/dl (31.0-36.0); MEAN CORPUSCULAR VOLUME 92 fL (82-100); MONOCYTES # (AUTO) 1.2 K/uL (0.1-1.30); MONOCYTES % (AUTO) 15.4 % (2.0-12.0); NEUTROPHILS # (AUTO) 4.7 K/uL (1.8-8.9); NEUTROPHILS % (AUTO) 61.5 % (43.0-81.0); PLATELET COUNT (AUTO) 145 K/uL (150-450); RED BLOOD CELL COUNT(AUTO) 2.75 MIL/uL (4.0-5.2); RED CELL DISTRIBUTION WIDTH 18.2 % (11.5-15.0); WHITE BLOOD COUNT (AUTO) 7.7 K/uL (4.3-11.0)
[2023-05-02 05:28] LABS: INR 1.19 (0.91-1.10); PARTIAL THROMBOPLASTIN TIME 32.5 SEC (24.3-34.3); PROTHROMBIN TIME 12.4 SECS (9.2-11.1)
[2023-05-02 05:35] LABS: CALCIUM, SERUM 8.8 mg/dL (8.5-10.1); CARBON DIOXIDE 25 mmol/L (21-32); CHLORIDE 96 mmol/L (98-107); CREATININE 0.7 mg/dL (0.6-1.3); GLUCOSE 143 mg/dL (74-106); POTASSIUM 2.9 mmol/L (3.5-5.1); SODIUM SERUM 133 mmol/L (136-145); UREA NITROGEN, BLOOD 9 mg/dL (7-18)
[2023-05-02 05:44] LABS: LACTIC ACID 3.6 mmol/L (0.4-2.0)
[2023-05-02 05:48] LABS: ALANINE AMINOTRANSFERASE 30 U/L (12-78); ALBUMIN 2.8 g/dL (3.4-5.0); ALKALINE PHOSPHATASE 68 U/L (46-116); ASPARTATE AMINOTRANSFERASE 33 U/L (15-37); BILIRUBIN,DIRECT 0.8 mg/dL (0.0-0.2); NT-PRO BNP 182 pg/mL (0-125); TOTAL PROTEIN, SERUM 7.3 g/dL (6.4-8.2)
[2023-05-02] MEDS ORDERED: CEFTRIAXONE 1GM BAG (ER ONLY) 50 ML IV ONE (05:52)
[2023-05-02] MEDS ORDERED: AZITHROMYCIN 500 MG VIAL ONE (05:53)
[2023-05-02] MEDS ORDERED: CEFTRIAXONE 1 G VIAL ONE (05:56)
[2023-05-02] MEDS ORDERED: IV NS 0.9% 1,000 ML BAG IV ONE (06:00)
[2023-05-02] MEDS ORDERED: POTASSIUM CHLORIDE 20 MEQ TAB.PRT.SR PO ONE ×4 (06:00→11:36)
[2023-05-02] MEDS ORDERED: AZITHROMYCIN 500 MG in IV D5W 250 ML IV ONE (06:00)
[2023-05-02] MEDS ORDERED: CEFTRIAXONE 1GM BAG (ER ONLY) 1 GM/50 ML PIGGYBACK IV ONE (06:00)
[2023-05-02] MEDS ORDERED: Z GUARD REMEDY 4 OZ OINT TP PRN (07:00)
[2023-05-02] MEDS ORDERED: DEXTROSE 50%-WATER 50 ML DISP.SYRIN IV PRN (07:00)
[2023-05-02] MEDS ORDERED: ONDANSETRON HCL/PF 4 MG/2 ML VIAL IVP PRN (07:00)
[2023-05-02] MEDS ORDERED: FERR325T28 PO (07:47)
[2023-05-02] MEDS ORDERED: METO25TA3 PO (07:47)
[2023-05-02] MEDS ORDERED: FURO-145 PO (07:47)
[2023-05-02] MEDS ORDERED: AMMO385C4 TP (07:47)
[2023-05-02] MEDS ORDERED: LISI-658 PO (07:47)
[2023-05-02] MEDS ORDERED: MULT-1095 PO (07:47)
[2023-05-02] MEDS ORDERED: CHRM1TAB PO (07:47)
[2023-05-02] MEDS ORDERED: METF-440 PO (07:47)
[2023-05-02] MEDS ORDERED: ATOR10TA PO (07:47)
[2023-05-02] MEDS ORDERED: GABA100C PO (07:47)
[2023-05-02] MEDS ORDERED: OMEP20TA20 PO (07:47)
[2023-05-02] MEDS ORDERED: MULT-754 PO (07:47)
[2023-05-02] MEDS ORDERED: TRAZ-182 PO (07:47)
[2023-05-02] MEDS ORDERED: LEVO50TA8 PO (07:47)
[2023-05-02] MEDS ORDERED: MAGNESIUM HYDROXIDE 30 ML UDC ONE (10:29)
[2023-05-02] MEDS ORDERED: ONDANSETRON HCL/PF 4 MG/2 ML VIAL ONE (10:29)
[2023-05-02] MEDS ORDERED: ENOXAPARIN SODIUM 40 MG/0.4 ML DISP.SYRIN SQ ONE (10:29)
[2023-05-02] MEDS ORDERED: PANTOPRAZOLE 40 MG TABLET.DR PO ONE (10:30)
[2023-05-02] MEDS: BLOOD SUGAR DIAGNOSTIC 1 EACH STRIP IN SCH ×3 (10:35→22:58)
[2023-05-02] MEDS: MAGNESIUM HYDROXIDE 30 ML UDC PO PRN (10:39)
[2023-05-02] MEDS: ENOXAPARIN SODIUM 40 MG/0.4 ML DISP.SYRIN SQ SCH (10:42)
[2023-05-02] MEDS: PANTOPRAZOLE 40 MG TABLET.DR PO SCH (10:42)
[2023-05-02 15:57] VITALS: BP 127/79; TEMP 97.7; O2SAT 94
[2023-05-02 16:26] LABS: APPEARANCE,URINE CLEAR (CLEAR); BILIRUBIN,URINE NEGATIVE (NEGATIVE); BLOOD, URINE NEGATIVE Ery/uL (NEGATIVE); COLOR,URINE YELLOW (YELLOW); KETONES,URINE NEGATIVE (NEGATIVE); LEUKOCYTE ESTERASE ,URINE NEGATIVE (NEGATIVE); NITRITE, URINE NEGATIVE (NEGATIVE); PROTEIN,URINE TRACE mg/dl (NEGATIVE); UGLUCOSE NEGATIVE (NEGATIVE)
[2023-05-02 17:31] LABS: RBC,URINE 0-2 /HPF (0-2); WBC,URINE 0-2 /HPF (0-3)
[2023-05-02 17:32] LABS: ADD URINE CULTURE NO; BACTERIA,URINE Few /HPF (None Seen); MUCUS,URINE Few /LPF (None Seen)
[2023-05-02] MEDS: IV NS 0.9% 1,000 ML IV PRN (17:35)
[2023-05-02] MEDS: ACETAMINOPHEN 325 MG TABLET PO PRN (17:57)
[2023-05-02] MEDS: GABAPENTIN 100 MG CAPSULE PO SCH (17:57)
[2023-05-02] MEDS: methylPREDNISolone SOD SUCC 40 MG/ML VIAL IV SCH ×2 (18:15→22:58)
[2023-05-02 20:00] VITALS: BP 138/72; TEMP 98.2; O2SAT 99
[2023-05-02] MEDS: TOBRAMYCIN SULFATE OPHTH OINT 3.5 GM TUBE LEFTEYE SCH (20:00)
[2023-05-02] MEDS: TRAZODONE 50 MG TABLET PO SCH (23:03)
[2023-05-02] MEDS: INSULIN REGULAR, HUMAN 100 UNIT/ML 3 ML VIAL SQ PRN (23:57)
[2023-05-03] VITALS (12 sets, daily range): BP systolic 115–128; BP diastolic 61–69; TEMP 97.7–98.7; O2SAT 95–100
[2023-05-03] MEDS: IPRATROPIUM NEB FS 0.5 MG/2.5 ML AMPUL.NEB NEB SCH ×4 (01:32→20:50)
[2023-05-03] MEDS: ALBUTEROL FS 2.5 MG/0.5 ML VIAL.NEB NEB SCH ×4 (01:32→20:49)
[2023-05-03] MEDS: CEFTRIAXONE 1 G in IV D5W 50 ML IV SCH (05:19)
[2023-05-03] MEDS: methylPREDNISolone SOD SUCC 40 MG/ML VIAL IV SCH ×3 (05:19→21:03)
[2023-05-03] MEDS: AZITHROMYCIN 500 MG in IV D5W 250 ML IV SCH (06:01)
[2023-05-03 06:24] LABS: BASOPHILS % (AUTO) 0.1 % (0.0-2.0); HEMATOCRIT 22 % (33-45); HEMOGLOBIN 7.4 g/dL (11.5-14.8); LYMPHOCYTES # (AUTO) 0.3 K/uL (0.8-4.8); LYMPHOCYTES % (AUTO) 9.3 % (20.0-44.0); MEAN CORPUSCULAR HEMOGLOBIN 31 PG (26.0-33.0); MEAN CORPUSCULAR HGB CONC 33 g/dl (31.0-36.0); MEAN CORPUSCULAR VOLUME 93 fL (82-100); MONOCYTES # (AUTO) 0.2 K/uL (0.1-1.30); MONOCYTES % (AUTO) 4.7 % (2.0-12.0); NEUTROPHILS % (AUTO) 85.9 % (43.0-81.0); PLATELET COUNT (AUTO) 107 K/uL (150-450); RED CELL DISTRIBUTION WIDTH 18.1 % (11.5-15.0); WHITE BLOOD COUNT (AUTO) 3.5 K/uL (4.3-11.0)
[2023-05-03 06:35] LABS: CALCIUM, SERUM 8.4 mg/dL (8.5-10.1); CREATININE 0.8 mg/dL (0.6-1.3); MAGNESIUM 1.9 mg/dL (1.8-2.4); PHOSPHORUS 2.1 mg/dL (2.5-4.9); POTASSIUM 3.5 mmol/L (3.5-5.1)
[2023-05-03] MEDS: BLOOD SUGAR DIAGNOSTIC 1 EACH STRIP IN SCH ×4 (06:37→22:02)
[2023-05-03 06:49] LABS: THYROID STIMULATING HORMONE 0.387 uIU/mL (0.358-3.74)
[2023-05-03] MEDS: INSULIN REGULAR, HUMAN 100 UNIT/ML 3 ML VIAL SQ PRN ×4 (06:57→22:14)
[2023-05-03] MEDS: ATORVASTATIN 10 MG TABLET PO SCH (08:31)
[2023-05-03] MEDS: GABAPENTIN 100 MG CAPSULE PO SCH ×2 (08:32→16:26)
[2023-05-03] MEDS: PANTOPRAZOLE 40 MG TABLET.DR PO SCH (08:32)
[2023-05-03] MEDS: MULTIVITAMINS,THERAGRAN 1 UDTAB TABLET PO SCH (08:32)
[2023-05-03] MEDS: LEVOTHYROXINE SODIUM 50 MCG TABLET PO SCH (08:32)
[2023-05-03] MEDS: FERROUS SULFATE (325 MG) 325 MG/TAB TABLET PO SCH (08:32)
[2023-05-03] MEDS: LISINOPRIL (20MG) 20 MG TABLET PO SCH ×2 (08:33→08:49)
[2023-05-03] MEDS: METOPROLOL SUCCINATE 25 MG TAB.SR.24H PO SCH ×2 (08:34→08:50)
[2023-05-03] MEDS: ACETAMINOPHEN 325 MG TABLET PO PRN (08:41)
[2023-05-03] MEDS: ENOXAPARIN SODIUM 40 MG/0.4 ML DISP.SYRIN SQ SCH (08:41)
[2023-05-03] MEDS: TOBRAMYCIN SULFATE OPHTH OINT 3.5 GM TUBE LEFTEYE SCH ×2 (08:43→16:27)
[2023-05-03 09:50] LABS: IRON, SERUM 34 ug/dl (50-175); TOTAL IRON BINDING CAPACITY 237 ug/dl (250-450)
[2023-05-03] MEDS: BENZONATATE 100 MG CAPSULE PO PRN (12:51)
[2023-05-03] MEDS ORDERED: K PHOS NEUTRAL 250 MG TABLET PO ONE (15:30)
[2023-05-03] MEDS: TIMOLOL 0.5% SOLN OPHTH 5 ML BOTTLE EACHEYE SCH (16:26)
[2023-05-03] MEDS: IV NS 0.9% 1,000 ML IV PRN (17:27)
[2023-05-03] MEDS: TRAZODONE 50 MG TABLET PO SCH (22:04)
[2023-05-04] VITALS (20 sets, daily range): BP systolic 96–130; BP diastolic 52–79; TEMP 97.5–99; O2SAT 96–100
[2023-05-04] MEDS: ALBUTEROL FS 2.5 MG/0.5 ML VIAL.NEB NEB SCH ×4 (01:52→19:56)
[2023-05-04] MEDS: IPRATROPIUM NEB FS 0.5 MG/2.5 ML AMPUL.NEB NEB SCH ×4 (01:52→19:56)
[2023-05-04] MEDS: methylPREDNISolone SOD SUCC 40 MG/ML VIAL IV SCH ×3 (05:16→17:25)
[2023-05-04] MEDS: CEFTRIAXONE 1 G in IV D5W 50 ML IV SCH (05:21)
[2023-05-04 06:05] LABS: OCCULT BLOOD STOOL POSITIVE (NEGATIVE)
[2023-05-04 06:06] LABS: FOLIC ACID 19.8 ng/mL (>3.0)
[2023-05-04] MEDS: AZITHROMYCIN 500 MG in IV D5W 250 ML IV SCH (06:15)
[2023-05-04 06:16] LABS: BASOPHILS % (AUTO) 0.1 % (0.0-2.0); HEMATOCRIT 21 % (33-45); LYMPHOCYTES # (AUTO) 0.4 K/uL (0.8-4.8); LYMPHOCYTES % (AUTO) 6.5 % (20.0-44.0); MEAN CORPUSCULAR HEMOGLOBIN 30 PG (26.0-33.0); MEAN CORPUSCULAR HGB CONC 33 g/dl (31.0-36.0); MEAN CORPUSCULAR VOLUME 93 fL (82-100); MONOCYTES # (AUTO) 0.4 K/uL (0.1-1.30); MONOCYTES % (AUTO) 5.6 % (2.0-12.0); NEUTROPHILS # (AUTO) 5.5 K/uL (1.8-8.9); NEUTROPHILS % (AUTO) 87.8 % (43.0-81.0); PLATELET COUNT (AUTO) 130 K/uL (150-450); RED BLOOD CELL COUNT(AUTO) 2.28 MIL/uL (4.0-5.2); RED CELL DISTRIBUTION WIDTH 18.5 % (11.5-15.0); WHITE BLOOD COUNT (AUTO) 6.3 K/uL (4.3-11.0)
[2023-05-04 06:22] LABS: HEMOGLOBIN 6.9 g/dL (11.5-14.8)
[2023-05-04 06:30] LABS: CALCIUM, SERUM 8.7 mg/dL (8.5-10.1); CREATININE 0.7 mg/dL (0.6-1.3); POTASSIUM 3.8 mmol/L (3.5-5.1)
[2023-05-04] MEDS: BLOOD SUGAR DIAGNOSTIC 1 EACH STRIP IN SCH ×4 (07:51→22:26)
[2023-05-04] MEDS: LEVOTHYROXINE SODIUM 50 MCG TABLET PO SCH (07:58)
[2023-05-04] MEDS: PANTOPRAZOLE 40 MG TABLET.DR PO SCH (07:58)
[2023-05-04] MEDS: INSULIN REGULAR, HUMAN 100 UNIT/ML 3 ML VIAL SQ PRN ×4 (07:59→22:32)
[2023-05-04] MEDS: PANTOPRAZOLE 40 MG VIAL IV SCH ×3 (09:00→17:25)
[2023-05-04] MEDS: MULTIVITAMINS,THERAGRAN 1 UDTAB TABLET PO SCH (09:40)
[2023-05-04] MEDS: FERROUS SULFATE (325 MG) 325 MG/TAB TABLET PO SCH (09:40)
[2023-05-04] MEDS: ATORVASTATIN 10 MG TABLET PO SCH (09:40)
[2023-05-04] MEDS: GABAPENTIN 100 MG CAPSULE PO SCH ×2 (09:40→17:25)
[2023-05-04] MEDS: LISINOPRIL (20MG) 20 MG TABLET PO SCH (09:46)
[2023-05-04] MEDS: METOPROLOL SUCCINATE 25 MG TAB.SR.24H PO SCH (09:46)
[2023-05-04] MEDS: TIMOLOL 0.5% SOLN OPHTH 5 ML BOTTLE EACHEYE SCH ×2 (09:49→17:37)
[2023-05-04] MEDS: TOBRAMYCIN SULFATE OPHTH OINT 3.5 GM TUBE LEFTEYE SCH ×2 (10:29→17:35)
[2023-05-04 11:49] LABS: ANISOCYTOSIS 1+; BASOPHILS % (MANUAL) 0 % (0.0-2.0); EOSINOPHILS % (MANUAL) 0 % (0-4); HYPOCHROMASIA 1+; LYMPHOCYTES % (MANUAL) 5 % (16-48); MONOCYTES % (MANUAL) 4 % (0-11.0); NEUTROPHILS % (MANUAL) 91 (42-76); PLATELET ESTIMATE ADEQUATE
[2023-05-04] MEDS ORDERED: oxyCODONE/APAP (5/325 MG) 1 UDTAB TABLET PO PRN (13:00)
[2023-05-04 16:27] LABS: HEMOGLOBIN 7.8 g/dL (11.5-14.8)
[2023-05-04] MEDS: TRAZODONE 50 MG TABLET PO SCH (22:26)
[2023-05-05] VITALS (12 sets, daily range): BP systolic 115–121; BP diastolic 56–75; TEMP 97.9–98.6; O2SAT 92–100
[2023-05-05] MEDS: ALBUTEROL FS 2.5 MG/0.5 ML VIAL.NEB NEB SCH ×4 (01:25→21:20)
[2023-05-05] MEDS: IPRATROPIUM NEB FS 0.5 MG/2.5 ML AMPUL.NEB NEB SCH ×4 (01:25→21:20)
[2023-05-05] MEDS: CEFTRIAXONE 1 G in IV D5W 50 ML IV SCH (05:17)
[2023-05-05] MEDS: AZITHROMYCIN 500 MG in IV D5W 250 ML IV SCH (06:04)
[2023-05-05 06:18] LABS: BASOPHILS % (AUTO) 0.1 % (0.0-2.0); HEMATOCRIT 25 % (33-45); LYMPHOCYTES # (AUTO) 0.4 K/uL (0.8-4.8); LYMPHOCYTES % (AUTO) 7.1 % (20.0-44.0); MEAN CORPUSCULAR HEMOGLOBIN 30 PG (26.0-33.0); MEAN CORPUSCULAR HGB CONC 33 g/dl (31.0-36.0); MEAN CORPUSCULAR VOLUME 92 fL (82-100); MONOCYTES # (AUTO) 0.4 K/uL (0.1-1.30); MONOCYTES % (AUTO) 8.4 % (2.0-12.0); NEUTROPHILS # (AUTO) 4.5 K/uL (1.8-8.9); NEUTROPHILS % (AUTO) 84.4 % (43.0-81.0); PLATELET COUNT (AUTO) 134 K/uL (150-450); RED BLOOD CELL COUNT(AUTO) 2.65 MIL/uL (4.0-5.2); RED CELL DISTRIBUTION WIDTH 17.4 % (11.5-15.0); WHITE BLOOD COUNT (AUTO) 5.3 K/uL (4.3-11.0)
[2023-05-05] MEDS: BLOOD SUGAR DIAGNOSTIC 1 EACH STRIP IN SCH ×4 (06:55→21:58)
[2023-05-05] MEDS: INSULIN REGULAR, HUMAN 100 UNIT/ML 3 ML VIAL SQ PRN ×4 (06:57→22:02)
[2023-05-05 07:10] LABS: CALCIUM, SERUM 8.7 mg/dL (8.5-10.1); CREATININE 0.9 mg/dL (0.6-1.3); PHOSPHORUS 3.8 mg/dL (2.5-4.9); POTASSIUM 4.3 mmol/L (3.5-5.1)
[2023-05-05] MEDS: LEVOTHYROXINE SODIUM 50 MCG TABLET PO SCH (07:36)
[2023-05-05 08:13] LABS: ALBUMIN 2.4 g/dL (3.4-5.0); BILIRUBIN,TOTAL 0.6 mg/dL (0.2-1.0); TOTAL PROTEIN, SERUM 6.2 g/dL (6.4-8.2)
[2023-05-05] MEDS: TIMOLOL 0.5% SOLN OPHTH 5 ML BOTTLE EACHEYE SCH ×2 (08:45→16:11)
[2023-05-05] MEDS: MULTIVITAMINS,THERAGRAN 1 UDTAB TABLET PO SCH (08:46)
[2023-05-05] MEDS: LISINOPRIL (20MG) 20 MG TABLET PO SCH (08:46)
[2023-05-05] MEDS: TOBRAMYCIN SULFATE OPHTH OINT 3.5 GM TUBE LEFTEYE SCH ×2 (08:46→16:11)
[2023-05-05] MEDS: PANTOPRAZOLE 40 MG VIAL IV SCH ×2 (08:46→16:11)
[2023-05-05] MEDS: FERROUS SULFATE (325 MG) 325 MG/TAB TABLET PO SCH (08:46)
[2023-05-05] MEDS: METOPROLOL SUCCINATE 25 MG TAB.SR.24H PO SCH (08:47)
[2023-05-05] MEDS: GABAPENTIN 100 MG CAPSULE PO SCH ×2 (08:47→16:11)
[2023-05-05] MEDS: ATORVASTATIN 10 MG TABLET PO SCH (08:47)
[2023-05-05] MEDS ORDERED: methylPREDNISolone SOD SUCC 40 MG/ML VIAL IV ONE (09:00)
[2023-05-05] MEDS: INSULIN GLARGINE, 100 UNIT/ML CARTRIDGE SQ SCH ×2 (09:50→17:01)
[2023-05-05 18:06] LABS: LEGIONELLA PNEUMOPHILIA AB <0.91 OD ratio (0.00-0.90)
[2023-05-05 19:06] LABS: *MYCOPLASMA PNEUMONIAE IgG 347 U/mL (0-99); *MYCOPLASMA PNEUMONIAE IgM <770 U/mL (0-769)
[2023-05-05] MEDS: BENZONATATE 100 MG CAPSULE PO PRN (21:47)
[2023-05-05] MEDS: TRAZODONE 50 MG TABLET PO SCH (21:54)
[2023-05-06] VITALS (14 sets, daily range): BP systolic 133–150; BP diastolic 60–86; TEMP 97.3–98.6; O2SAT 95–100
[2023-05-06 00:33] LABS: HEMOGLOBIN 8.8 g/dL (11.5-14.8)
[2023-05-06] MEDS: IPRATROPIUM NEB FS 0.5 MG/2.5 ML AMPUL.NEB NEB SCH ×4 (01:37→19:54)
[2023-05-06] MEDS: ALBUTEROL FS 2.5 MG/0.5 ML VIAL.NEB NEB SCH ×4 (01:37→19:54)
[2023-05-06] MEDS: IV NS 0.9% 1,000 ML IV PRN (02:20)
[2023-05-06 06:05] LABS: HEMATOCRIT 25 % (33-45); HEMOGLOBIN 8.3 g/dL (11.5-14.8); LYMPHOCYTES # (AUTO) 0.6 K/uL (0.8-4.8); LYMPHOCYTES % (AUTO) 10.5 % (20.0-44.0); MEAN CORPUSCULAR HEMOGLOBIN 30 PG (26.0-33.0); MEAN CORPUSCULAR HGB CONC 33 g/dl (31.0-36.0); MEAN CORPUSCULAR VOLUME 92 fL (82-100); MONOCYTES # (AUTO) 0.5 K/uL (0.1-1.30); NEUTROPHILS # (AUTO) 4.3 K/uL (1.8-8.9); NEUTROPHILS % (AUTO) 80.5 % (43.0-81.0); PLATELET COUNT (AUTO) 145 K/uL (150-450); RED BLOOD CELL COUNT(AUTO) 2.72 MIL/uL (4.0-5.2); RED CELL DISTRIBUTION WIDTH 17.4 % (11.5-15.0); WHITE BLOOD COUNT (AUTO) 5.3 K/uL (4.3-11.0)
[2023-05-06 06:23] LABS: CALCIUM, SERUM 8.6 mg/dL (8.5-10.1); CREATININE 0.7 mg/dL (0.6-1.3); POTASSIUM 4.1 mmol/L (3.5-5.1)
[2023-05-06] MEDS: CEFTRIAXONE 1 G in IV D5W 50 ML IV SCH (06:36)
[2023-05-06] MEDS: BLOOD SUGAR DIAGNOSTIC 1 EACH STRIP IN SCH ×4 (06:51→22:19)
[2023-05-06] MEDS: INSULIN REGULAR, HUMAN 100 UNIT/ML 3 ML VIAL SQ PRN ×3 (06:56→17:57)
[2023-05-06] MEDS ORDERED: AZITHROMYCIN 250 MG TABLET PO SCH (07:00)
[2023-05-06] MEDS: LEVOTHYROXINE SODIUM 50 MCG TABLET PO SCH (08:07)
[2023-05-06] MEDS: TIMOLOL 0.5% SOLN OPHTH 5 ML BOTTLE EACHEYE SCH ×2 (09:33→18:01)
[2023-05-06] MEDS: PANTOPRAZOLE 40 MG VIAL IV SCH (09:33)
[2023-05-06] MEDS: FERROUS SULFATE (325 MG) 325 MG/TAB TABLET PO SCH (09:34)
[2023-05-06] MEDS: GABAPENTIN 100 MG CAPSULE PO SCH ×2 (09:34→18:02)
[2023-05-06] MEDS: ATORVASTATIN 10 MG TABLET PO SCH (09:34)
[2023-05-06] MEDS: TOBRAMYCIN SULFATE OPHTH OINT 3.5 GM TUBE LEFTEYE SCH ×2 (09:34→17:59)
[2023-05-06] MEDS: LISINOPRIL (20MG) 20 MG TABLET PO SCH (09:35)
[2023-05-06] MEDS: MULTIVITAMINS,THERAGRAN 1 UDTAB TABLET PO SCH (09:35)
[2023-05-06] MEDS: METOPROLOL SUCCINATE 25 MG TAB.SR.24H PO SCH (09:35)
[2023-05-06] MEDS: INSULIN GLARGINE, 100 UNIT/ML CARTRIDGE SQ SCH ×2 (09:36→17:59)
[2023-05-06 16:10] LABS: HEMOGLOBIN 9.4 g/dL (11.5-14.8)
[2023-05-06] MEDS: PANTOPRAZOLE 40 MG/PACK PACK PO SCH (18:05)
[2023-05-06] MEDS: TRAZODONE 50 MG TABLET PO SCH (22:13)
[2023-05-07] VITALS (9 sets, daily range): BP systolic 137–155; BP diastolic 62–82; TEMP 98.1–98.4; O2SAT 94–100
[2023-05-07] MEDS: BENZONATATE 100 MG CAPSULE PO PRN (00:11)
[2023-05-07] MEDS: IPRATROPIUM NEB FS 0.5 MG/2.5 ML AMPUL.NEB NEB SCH ×3 (01:30→12:49)
[2023-05-07] MEDS: ALBUTEROL FS 2.5 MG/0.5 ML VIAL.NEB NEB SCH ×3 (01:30→12:49)
[2023-05-07] MEDS: CEFTRIAXONE 1 G in IV D5W 50 ML IV SCH (05:08)
[2023-05-07] MEDS: BLOOD SUGAR DIAGNOSTIC 1 EACH STRIP IN SCH ×3 (06:32→17:30)
[2023-05-07 06:38] LABS: BASOPHILS % (AUTO) 0.3 % (0.0-2.0); EOSINOPHILS # (AUTO) 0.1 K/uL (0.0-0.7); EOSINOPHILS % (AUTO) 1.6 % (0.0-6.0); HEMATOCRIT 28 % (33-45); HEMOGLOBIN 9.3 g/dL (11.5-14.8); LYMPHOCYTES # (AUTO) 0.8 K/uL (0.8-4.8); LYMPHOCYTES % (AUTO) 10.9 % (20.0-44.0); MEAN CORPUSCULAR HEMOGLOBIN 30 PG (26.0-33.0); MEAN CORPUSCULAR HGB CONC 33 g/dl (31.0-36.0); MEAN CORPUSCULAR VOLUME 93 fL (82-100); MONOCYTES # (AUTO) 0.4 K/uL (0.1-1.30); NEUTROPHILS # (AUTO) 5.8 K/uL (1.8-8.9); NEUTROPHILS % (AUTO) 81.2 % (43.0-81.0); PLATELET COUNT (AUTO) 136 K/uL (150-450); RED BLOOD CELL COUNT(AUTO) 3.04 MIL/uL (4.0-5.2); RED CELL DISTRIBUTION WIDTH 17.3 % (11.5-15.0); WHITE BLOOD COUNT (AUTO) 7.2 K/uL (4.3-11.0)
[2023-05-07] MEDS: LEVOTHYROXINE SODIUM 50 MCG TABLET PO SCH (07:48)
[2023-05-07] MEDS: INSULIN GLARGINE, 100 UNIT/ML CARTRIDGE SQ SCH ×2 (09:00→17:00)
[2023-05-07] MEDS ORDERED: LEVO750T46 PO (09:09)
[2023-05-07] MEDS ORDERED: FERR325T28 PO (09:09)
[2023-05-07] MEDS: PANTOPRAZOLE 40 MG/PACK PACK PO SCH ×2 (09:33→17:18)
[2023-05-07] MEDS: METOPROLOL SUCCINATE 25 MG TAB.SR.24H PO SCH (09:35)
[2023-05-07] MEDS: ATORVASTATIN 10 MG TABLET PO SCH (09:35)
[2023-05-07] MEDS: GABAPENTIN 100 MG CAPSULE PO SCH ×2 (09:35→17:18)
[2023-05-07] MEDS: FERROUS SULFATE (325 MG) 325 MG/TAB TABLET PO SCH (09:35)
[2023-05-07] MEDS: LISINOPRIL (20MG) 20 MG TABLET PO SCH (09:35)
[2023-05-07] MEDS: MULTIVITAMINS,THERAGRAN 1 UDTAB TABLET PO SCH (09:35)
[2023-05-07] MEDS: TIMOLOL 0.5% SOLN OPHTH 5 ML BOTTLE EACHEYE SCH ×2 (09:37→17:18)
[2023-05-07] MEDS: TOBRAMYCIN SULFATE OPHTH OINT 3.5 GM TUBE LEFTEYE SCH ×2 (09:37→17:19)
[2023-05-07] MEDS ORDERED: PANT40TA2 PO (10:25)
[2023-05-07] MEDS ORDERED: LEVOFLOXACIN (250MG) 250 MG TABLET PO STA (17:00)
== END 2023-05-07 18:41 | disposition home or self-care (01) | DRG 720 ==
LOC: ER 04:20 → TRANSITION 09:20 → TELE 13:40
PROVIDERS: ADMIT Nurse Practitioner Acute Care; ATTEND Internal Medicine
PROC: 30233N1 Transfusion of Nonautologous Red Blood Cells into Peripheral Vein, Percutaneous Approach (ICD-10-PCS; principal; 2023-05-04)
DX: A41.9 Sepsis, unspecified organism (principal); E87.20 Acidosis, unspecified; J15.8 Pneumonia due to other specified bacteria; E44.0 Moderate protein-calorie malnutrition; E87.1 Hypo-osmolality and hyponatremia; D62 Acute posthemorrhagic anemia; K74.60 Unspecified cirrhosis of liver; E88.09 Other disorders of plasma-protein metabolism, not elsewhere classified; E03.9 Hypothyroidism, unspecified; E11.9 Type 2 diabetes mellitus without complications; E66.9 Obesity, unspecified; E78.5 Hyperlipidemia, unspecified; E87.6 Hypokalemia; H40.9 Unspecified glaucoma; I10 Essential (primary) hypertension; Z20.822 Contact with and (suspected) exposure to COVID-19; Z87.891 Personal history of nicotine dependence; Z90.49 Acquired absence of other specified parts of digestive tract; Z90.710 Acquired absence of both cervix and uterus; R74.01 Elevation of levels of liver transaminase levels; Z68.29 Body mass index [BMI] 29.0-29.9, adult; R91.8 Other nonspecific abnormal finding of lung field; B96.0 Mycoplasma pneumoniae [M. pneumoniae] as the cause of diseases classified elsewhere; Z79.84 Long term (current) use of oral hypoglycemic drugs
CPT/HCPCS: 36415; 71045-TC; 71250-TC; 80048-TC; 80053-TC; 80076-TC; 81001; 82272-TC; 82607-TC; 82962-TC; 83540-TC; 83605-TC; 83735-TC; 83880; 84100-TC; 84443-TC; 84484-TC; 85025-TC; 85027-TC; 85730-TC; 86713; 86738; 86850-TC; 87040-TC; 94799-TC; A4223; C9113; C9803; G0378; J0456; J0696; J1650; J1815; J2405; J2920; J7030; J7040; J7060; P9016

== ENCOUNTER 2023-12-29 06:16 | Emergency (ER) | payer OTHER ==
[~2023-12-29] VITALS: Ht 160 cm; Wt 74.8 kg
[~2023-12-29 06:16] MED LIST changes: +AMMO385C4 TP; +CHRM1TAB PO; -CLIN300C12 PO; +FERR325T28 PO; +FURO-145 PO; +GABA100C PO; -HYDR-4384 PO; +LEVO50TA8 PO; +LEVO750T46 PO; -LEVO75TA7 PO; +LISI-658 PO; -LISI20TA30 PO; +METF-440 PO; -METF-881 PO; -METO-357 PO; +METO25TA3 PO; +MULT-1095 PO; +MULT-754 PO; +OMEP20TA20 PO; -OXYC-128 PO; +PANT40TA2 PO; +TRAZ-182 PO
[2023-12-29] MEDS ORDERED: KETOROLAC TROMETHAMINE INJ 30 MG/ML VIAL ONE (07:22)
[2023-12-29] MEDS: KETOROLAC TROMETHAMINE INJ 60 MG/2 ML VIAL IM ONE (07:29)
[2023-12-29] MEDS ORDERED: MORPHINE SULFATE INJ 4 MG/ML DISP.SYRIN ONE (08:49)
[2023-12-29] MEDS: MORPHINE SULFATE INJ 2 MG/ML DISP.SYRIN IM ONE (08:58)
[2023-12-29 10:29] VITALS: BP 140/78; TEMP 98.9; O2SAT 98
== END 2023-12-29 10:29 | disposition home or self-care (01) ==
LOC: ER 06:19
DX: S42.212A Unspecified displaced fracture of surgical neck of left humerus, initial encounter for closed fracture (principal); I10 Essential (primary) hypertension; E11.9 Type 2 diabetes mellitus without complications; F17.200 Nicotine dependence, unspecified, uncomplicated; Z98.890 Other specified postprocedural states; Z79.899 Other long term (current) drug therapy; X58.XXXA Exposure to other specified factors, initial encounter; Y93.89 Activity, other specified; Y92.89 Other specified places as the place of occurrence of the external cause; Y99.8 Other external cause status
CPT/HCPCS: 29105; 73030; 73060; 96372; 99284; J1885; J2270

== ENCOUNTER 2024-01-04 12:36 | Emergency (ER) | payer OTHER ==
[~2024-01-04] VITALS: Ht 152.4 cm; Wt 81.2 kg
[2024-01-04] MEDS ORDERED: MORPHINE SULFATE INJ 4 MG/ML DISP.SYRIN ONE (14:59)
[2024-01-04] MEDS: MORPHINE SULFATE INJ 2 MG/ML DISP.SYRIN IM ONE ×2 (15:03→16:35)
[2024-01-04] MEDS ORDERED: OXYC-128 PO (16:20)
[2024-01-04] MEDS ORDERED: MORPHINE SULFATE INJ 2 MG/ML DISP.SYRIN ONE (16:28)
[2024-01-04 16:35] VITALS: BP 146/77; TEMP 98; O2SAT 99
== END 2024-01-04 16:36 | disposition home or self-care (01) ==
LOC: ER 13:21
DX: S42.302D Unspecified fracture of shaft of humerus, left arm, subsequent encounter for fracture with routine healing (principal); I10 Essential (primary) hypertension; E11.9 Type 2 diabetes mellitus without complications; F17.200 Nicotine dependence, unspecified, uncomplicated; Z90.710 Acquired absence of both cervix and uterus; Z90.49 Acquired absence of other specified parts of digestive tract; Z79.899 Other long term (current) drug therapy; X58.XXXD Exposure to other specified factors, subsequent encounter
CPT/HCPCS: 99285; 93971; 96372 ×2; 73090; 73130; J2270 ×2

== ENCOUNTER 2024-02-26 05:41 | Emergency (ER) | payer OTHER ==
[~2024-02-26] VITALS: Ht 162.6 cm; Wt 90.7 kg
[~2024-02-26 05:41] MED LIST changes: +OXYC-128 PO
[2024-02-26 07:05] VITALS: BP 122/79; TEMP 209.5; O2SAT 98
== END 2024-02-26 07:06 | disposition home or self-care (01) ==
LOC: ER 05:43
DX: S93.601A Unspecified sprain of right foot, initial encounter (principal); F10.10 Alcohol abuse, uncomplicated; I10 Essential (primary) hypertension; E11.9 Type 2 diabetes mellitus without complications; F17.200 Nicotine dependence, unspecified, uncomplicated; Z90.710 Acquired absence of both cervix and uterus; Z90.49 Acquired absence of other specified parts of digestive tract; W10.8XXA Fall (on) (from) other stairs and steps, initial encounter; Y93.89 Activity, other specified; Y92.89 Other specified places as the place of occurrence of the external cause; Y99.8 Other external cause status; Y90.9 Presence of alcohol in blood, level not specified
CPT/HCPCS: 73610-TC; 73630-TC

== ENCOUNTER 2024-11-21 03:39 | Emergency (ER) | payer OTHER ==
[~2024-11-21] VITALS: Ht 165.1 cm; Wt 65.8 kg
[2024-11-21] MEDS ORDERED: oxyCODONE/APAP (5/325 MG) 1 UDTAB TABLET ONE (04:35)
[2024-11-21] MEDS: oxyCODONE/APAP (5/325 MG) 1 UDTAB TABLET PO ONE (04:38)
[2024-11-21 07:39] VITALS: BP 141/94; TEMP 98.2; O2SAT 97
== END 2024-11-21 07:40 | disposition home or self-care (01) ==
LOC: ER 03:46
DX: S92.345A Nondisplaced fracture of fourth metatarsal bone, left foot, initial encounter for closed fracture (principal); M79.672 Pain in left foot; R51.9 Headache, unspecified; I10 Essential (primary) hypertension; E11.9 Type 2 diabetes mellitus without complications; F17.200 Nicotine dependence, unspecified, uncomplicated; Z79.899 Other long term (current) drug therapy; Z90.49 Acquired absence of other specified parts of digestive tract; Z90.710 Acquired absence of both cervix and uterus; W01.0XXA Fall on same level from slipping, tripping and stumbling without subsequent striking against object, initial encounter; Y93.89 Activity, other specified; Y92.89 Other specified places as the place of occurrence of the external cause; Y99.8 Other external cause status
CPT/HCPCS: 70450-TC; 70486-TC; 73610-TC; 73630-TC

== ENCOUNTER 2025-06-23 13:38 | Inpatient (IN) | payer OTHER ==
[~2025-06-23] VITALS: Ht 157.5 cm; Wt 78.0 kg
[2025-06-23] VITALS (16 sets, daily range): BP systolic 100–157; BP diastolic 44–90; TEMP 98.4–98.8; O2SAT 98–100
[2025-06-23] MEDS: IV NS 0.9% 1,000 ML BAG IV ONE (14:34)
[2025-06-23 14:45] LABS: PLATELET COUNT (AUTO) 68 K/uL (150-450); RED BLOOD CELL COUNT(AUTO) 2.58 MIL/uL (4.0-5.2); RED CELL DISTRIBUTION WIDTH 20.9 % (11.5-15.0); WHITE BLOOD COUNT (AUTO) 3.3 K/uL (4.3-11.0)
[2025-06-23 14:56] LABS: CALCIUM, SERUM 7.1 mg/dL (8.5-10.1); CREATININE 0.5 mg/dL (0.6-1.3); SODIUM SERUM 134 mmol/L (136-145); UREA NITROGEN, BLOOD 7 mg/dL (7-18)
[2025-06-23 14:59] LABS: INR 1.83 (0.91-1.10)
[2025-06-23 15:03] LABS: ALCOHOL, BLOOD 229 mg/dL (0-10); ASPARTATE AMINOTRANSFERASE 99 U/L (15-37); TOTAL PROTEIN, SERUM 6.4 g/dL (6.4-8.2)
[2025-06-23 15:09] LABS: CREATINE KINASE, TOTAL 186 U/L (26-192)
[2025-06-23] MEDS ORDERED: HYDR-3972 PO (15:59)
[2025-06-23] MEDS ORDERED: PANT40TA49 PO (15:59)
[2025-06-23] MEDS ORDERED: MORPHINE SULFATE INJ 2 MG/ML DISP.SYRIN IV PRN (17:30)
[2025-06-23] MEDS ORDERED: LORAZEPAM INJ 2 MG/ML VIAL IV PRN (17:30)
[2025-06-23] MEDS ORDERED: MAG HYDROX/AL HYDROX/SIMETH 30 ML UDC PO PRN (17:30)
[2025-06-23 18:11] LABS: EOSINOPHILS % (MANUAL) 3 % (0-4); LYMPHOCYTES % (MANUAL) 11 % (16-48); MONOCYTES % (MANUAL) 4 % (0-11.0); NEUTROPHILS % (MANUAL) 82 (42-76); PLATELET ESTIMATE DECREASED
[2025-06-23 18:45] LABS: APPEARANCE,URINE CLEAR (CLEAR); BLOOD, URINE Negative Ery/uL (NEGATIVE); LEUKOCYTE ESTERASE ,URINE Negative (NEGATIVE); NITRITE, URINE NEGATIVE (NEGATIVE); UGLUCOSE Negative (NEGATIVE)
[2025-06-23 18:48] LABS: ADD URINE CULTURE NO; SQUAMOUS EPITHELIAL CELL,UR Few /HPF (None Seen)
[2025-06-23 18:52] LABS: AMPHETAMINE, URINE NEGATIVE (NEGATIVE); BARBITURATE, URINE NEGATIVE (NEGATIVE); BENZODIAZEPINE, URINE NEGATIVE (NEGATIVE); CANNABINOID, URINE NEGATIVE (NEGATIVE); COCCAINE, URINE POSITIVE (NEGATIVE); OPIATE, URINE POSITIVE (NEGATIVE)
[2025-06-23] MEDS ORDERED: DEXTROSE 50%-WATER 50 ML DISP.SYRIN IV PRN (19:30)
[2025-06-23] MEDS: IV NS 0.9% 1,000 ML IV SCH (20:09)
[2025-06-23 20:54] LABS: IRON, SERUM 48.0 ug/dl (50-175)
[2025-06-23] MEDS: MORPHINE SULFATE INJ 4 MG/ML DISP.SYRIN IV PRN (21:12)
[2025-06-23] MEDS: CHLORDIAZEPOXIDE HCL 25 MG CAPSULE PO SCH (21:20)
[2025-06-23] MEDS: PANTOPRAZOLE 40 MG VIAL IV SCH (21:20)
[2025-06-23] MEDS: CEFTRIAXONE 1 G in IV D5W 50 ML IV SCH (21:22)
[2025-06-23 21:35] LABS: FIBRINOGEN ACTIVITY 105.0 Mg/dL (213-485); INR 1.82 (0.91-1.10)
[2025-06-23] MEDS: IV NS 0.9% 250 ML IV PRN (22:33)
[2025-06-23] MEDS: BLOOD SUGAR DIAGNOSTIC 1 EACH STRIP VI SCH (22:38)
[2025-06-23] MEDS: *INSULIN REGULAR(HUMULIN R)HUM 100 UNIT/ML VIAL SQ PRN (23:42)
[2025-06-24] VITALS (42 sets, daily range): BP systolic 111–172; BP diastolic 66–134; TEMP 97.4–99; O2SAT 95–100
[2025-06-24] MEDS: FUROSEMIDE 40 MG/4 ML VIAL IV ONE (02:19)
[2025-06-24 07:39] LABS: PLATELET COUNT (AUTO) 56 K/uL (150-450); RED BLOOD CELL COUNT(AUTO) 3.91 MIL/uL (4.0-5.2); RED CELL DISTRIBUTION WIDTH 21.2 % (11.5-15.0); WHITE BLOOD COUNT (AUTO) 3.6 K/uL (4.3-11.0)
[2025-06-24] MEDS: LEVOTHYROXINE SODIUM 50 MCG TABLET PO SCH (07:52)
[2025-06-24 07:55] LABS: ASPARTATE AMINOTRANSFERASE 89.0 U/L (15-37); CALCIUM, SERUM 6.7 mg/dL (8.5-10.1); CREATININE 0.4 mg/dL (0.6-1.3); PHOSPHORUS 3.8 mg/dL (2.5-4.9); SODIUM SERUM 136.0 mmol/L (136-145); TOTAL PROTEIN, SERUM 6.4 g/dL (6.4-8.2); UREA NITROGEN, BLOOD 5.0 mg/dL (7-18)
[2025-06-24 07:56] LABS: FIBRINOGEN ACTIVITY 144.0 Mg/dL (213-485); INR 1.81 (0.91-1.10)
[2025-06-24] MEDS: ATORVASTATIN 10 MG TABLET PO SCH (08:43)
[2025-06-24] MEDS: CLOTRIMAZOLE 1% 15 GM TUBE TP SCH (08:53)
[2025-06-24] MEDS: Z GUARD REMEDY 4 OZ OINT TP SCH (08:54)
[2025-06-24] MEDS: ACETAMINOPHEN 325 MG TABLET PO PRN (08:55)
[2025-06-24] MEDS ORDERED: Magnesium 1GM/D5W 100ML PREMIX 100 ML IV SCH (09:30)
[2025-06-24] MEDS: Magnesium 1GM/D5W 100ML PREMIX 100 ML IV SCH ×2 (09:31→10:37)
[2025-06-24 10:09] LABS: LYMPHOCYTES % (MANUAL) 7 % (16-48); MONOCYTES % (MANUAL) 12 % (0-11.0); NEUTROPHILS % (MANUAL) 81 (42-76); PLATELET ESTIMATE DECREASED
[2025-06-24] MEDS: POTASSIUM CHLORIDE 20 MEQ TAB.PRT.SR PO SCH (10:40)
[2025-06-24] MEDS: INSULIN REGULAR, HUMAN 100 UNIT/ML 3 ML VIAL SQ PRN (11:17)
[2025-06-24 11:46] LABS: RHEUMATOID FACTOR SCREEN NEGATIVE (NEGATIVE)
[2025-06-24] MEDS: SOD FERRIC GLUC 125 MG in IV NS 0.9% 100 ML IV SCH (14:58)
[2025-06-24] MEDS ORDERED: diphenhydrAMINE HCL ELIX 25 MG/10 ML UDC PO PRN (16:00)
[2025-06-24 17:10] LABS: HIV-1/2 ANTIBODY NON REACTIVE (NONREACTIVE)
[2025-06-24] MEDS: PHYTONADIONE INJ 10 MG/1 ML AMPUL SQ ONE (17:19)
[2025-06-24] MEDS: THIAMINE HCL 100 MG TABLET PO SCH (17:36)
[2025-06-24] MEDS: FOLIC ACID 1 MG TABLET PO SCH (17:36)
[2025-06-25] VITALS (18 sets, daily range): BP systolic 114–164; BP diastolic 60–116; TEMP 97.7–98.8; O2SAT 96–100
[2025-06-25 02:50] LABS: CALCIUM, SERUM 7.1 mg/dL (8.5-10.1); CREATININE 0.6 mg/dL (0.6-1.3); PHOSPHORUS 3.1 mg/dL (2.5-4.9); RED BLOOD CELL COUNT(AUTO) 3.76 MIL/uL (4.0-5.2); RED CELL DISTRIBUTION WIDTH 20.9 % (11.5-15.0); SODIUM SERUM 138.0 mmol/L (136-145); UREA NITROGEN, BLOOD 5.0 mg/dL (7-18); WHITE BLOOD COUNT (AUTO) 3.9 K/uL (4.3-11.0)
[2025-06-25 02:57] LABS: FIBRINOGEN ACTIVITY 176.0 Mg/dL (213-485); INR 1.61 (0.91-1.10)
[2025-06-25 03:01] LABS: PLATELET COUNT (AUTO) 48 K/uL (150-450)
[2025-06-25 03:14] LABS: EOSINOPHILS % (MANUAL) 1 % (0-4); LYMPHOCYTES % (MANUAL) 4 % (16-48); MONOCYTES % (MANUAL) 7 % (0-11.0)
[2025-06-25 03:15] LABS: NEUTROPHILS % (MANUAL) 88 (42-76); PLATELET ESTIMATE DECREASED
[2025-06-25] MEDS: POTASSIUM CHLORIDE 20 MEQ TAB.PRT.SR PO ONE (03:55)
[2025-06-25] MEDS: Magnesium 1GM/D5W 100ML PREMIX 100 ML IV ONE (03:55)
[2025-06-25 06:11] LABS: HEPATITIS B CORE AB, TOTAL Positive (Negative)
[2025-06-25 08:07] LABS: FOLIC ACID 16.0 ng/mL (>3.0); IMMUNOGLOBULIN A, SERUM 595 mg/dL (64-422); IMMUNOGLOBULIN M, SERUM 111 mg/dL (26-217)
[2025-06-25 11:09] LABS: FREE KAPPA LT CHAINS SERUM 36.1 mg/L (3.3-19.4); FREE LAMBDA LT CHAIN SERUM 40.5 mg/L (5.7-26.3); KAPPA/LAMBDA RATIO SERUM 0.89 (0.26-1.65)
[2025-06-25 12:07] LABS: *ANA ANTI-CENTROMERE B AB <0.2 AI (0.0-0.9); *ANA ANTI-DNA(DS) AB, QN 1 IU/mL (0-9); *ANA ANTI-JO-1 <0.2 AI (0.0-0.9); *ANA ANTICHROMATIN ANTIBODY <0.2 AI (0.0-0.9); *ANA RNP ANTIBODIES <0.2 AI (0.0-0.9); *ANA SJOGREN'S ANTI-SS-A <0.2 AI (0.0-0.9); *ANA SJOGREN'S ANTI-SS-B <0.2 AI (0.0-0.9); *ANAANTI-SCLERODERMA-70 AB <0.2 AI (0.0-0.9); *ANASMITH AB <0.2 AI (0.0-0.9)
[2025-06-25] MEDS: PANTOPRAZOLE 40 MG TABLET.DR PO SCH (17:54)
[2025-06-25] MEDS: LACTULOSE 10 G/15 ML UDC (PYXIS) PO SCH (21:15)
[2025-06-25] MEDS: MORPHINE SULFATE INJ 4 MG/ML DISP.SYRIN IV PRN (22:36)
[2025-06-26] VITALS (7 sets, daily range): BP systolic 122–156; BP diastolic 74–92; TEMP 97.5–97.7; O2SAT 96–100
[2025-06-26] MEDS ORDERED: MORPHINE SULFATE INJ 4 MG/ML DISP.SYRIN IV PRN
[2025-06-26] MEDS: ONDANSETRON HCL/PF 4 MG/2 ML VIAL IVP PRN (02:28)
[2025-06-26 07:43] LABS: FIBRINOGEN ACTIVITY 157.0 Mg/dL (213-485); INR 1.7 (0.91-1.10)
[2025-06-26 07:44] LABS: PLATELET COUNT (AUTO) 55 K/uL (150-450); RED BLOOD CELL COUNT(AUTO) 3.72 MIL/uL (4.0-5.2); RED CELL DISTRIBUTION WIDTH 20.3 % (11.5-15.0); WHITE BLOOD COUNT (AUTO) 3.9 K/uL (4.3-11.0)
[2025-06-26 07:52] LABS: SERUM AMMONIA 104.0 umol/L (11-32)
[2025-06-26 08:12] LABS: CALCIUM, SERUM 7.8 mg/dL (8.5-10.1); CREATININE 0.5 mg/dL (0.6-1.3); PHOSPHORUS 3.1 mg/dL (2.5-4.9); SODIUM SERUM 139.0 mmol/L (136-145); UREA NITROGEN, BLOOD 7.0 mg/dL (7-18)
[2025-06-26 09:44] LABS: ASPARTATE AMINOTRANSFERASE 78.0 U/L (15-37); TOTAL PROTEIN, SERUM 5.9 g/dL (6.4-8.2)
[2025-06-26] MEDS: Z GUARD REMEDY 4 OZ OINT TP PRN (09:44)
[2025-06-26] MEDS: LACTULOSE 10 G/15 ML UDC (PYXIS) PO SCH (10:13)
[2025-06-26 10:52] LABS: EOSINOPHILS % (MANUAL) 1 % (0-4); LYMPHOCYTES % (MANUAL) 2 % (16-48); MONOCYTES % (MANUAL) 6 % (0-11.0); NEUTROPHILS % (MANUAL) 91 (42-76); PLATELET ESTIMATE DECREASED
[2025-06-27] VITALS: BP 157/85; TEMP 97.5; O2SAT 97
[2025-06-27 04:00] VITALS: BP 155/86; TEMP 97.5; O2SAT 97
[2025-06-27 05:59] LABS: PLATELET COUNT (AUTO) 63 K/uL (150-450); RED BLOOD CELL COUNT(AUTO) 3.99 MIL/uL (4.0-5.2); RED CELL DISTRIBUTION WIDTH 21.0 % (11.5-15.0); WHITE BLOOD COUNT (AUTO) 3.5 K/uL (4.3-11.0)
[2025-06-27 06:10] LABS: CALCIUM, SERUM 8.2 mg/dL (8.5-10.1); CREATININE 0.6 mg/dL (0.6-1.3); PHOSPHORUS 3.5 mg/dL (2.5-4.9); SODIUM SERUM 137.0 mmol/L (136-145); UREA NITROGEN, BLOOD 9.0 mg/dL (7-18)
[2025-06-27 06:27] LABS: FIBRINOGEN ACTIVITY 176.0 Mg/dL (213-485); INR 1.71 (0.91-1.10)
[2025-06-27 08:00] VITALS: BP 149/80; TEMP 97; O2SAT 99
[2025-06-27] MEDS ORDERED: Magnesium 1GM/D5W 100ML PREMIX 100 ML IV SCH (09:30)
[2025-06-27] MEDS: Magnesium 1GM/D5W 100ML PREMIX 100 ML IV SCH (09:53)
[2025-06-27] MEDS: POTASSIUM CHLORIDE 20 MEQ TAB.PRT.SR PO ONE (10:19)
[2025-06-27 10:51] LABS: BASOPHILS % (MANUAL) 0 % (0.0-2.0); EOSINOPHILS % (MANUAL) 0 % (0-4); LYMPHOCYTES % (MANUAL) 8 % (16-48); MONOCYTES % (MANUAL) 5 % (0-11.0); NEUTROPHILS % (MANUAL) 87 (42-76)
[2025-06-27 10:52] LABS: PLATELET ESTIMATE DECREASED
[2025-06-27 12:00] VITALS: BP 150/89; TEMP 97.3; O2SAT 97
[2025-06-27 16:00] VITALS: BP 132/76; TEMP 97.3; O2SAT 98
[2025-06-27 22:00] VITALS: BP 156/85; TEMP 97.3; O2SAT 95
[2025-06-28] VITALS: BP 135/89; TEMP 97.8; O2SAT 100
[2025-06-28 04:00] VITALS: BP 108/64; TEMP 97.9; O2SAT 100
[2025-06-28 08:00] VITALS: BP 120/73; TEMP 97.6; O2SAT 99
[2025-06-28 10:21] LABS: PLATELET COUNT (AUTO) 74 K/uL (150-450); RED BLOOD CELL COUNT(AUTO) 3.82 MIL/uL (4.0-5.2); RED CELL DISTRIBUTION WIDTH 21.1 % (11.5-15.0); WHITE BLOOD COUNT (AUTO) 3.5 K/uL (4.3-11.0)
[2025-06-28 10:33] LABS: SERUM AMMONIA 53.0 umol/L (11-32)
[2025-06-28 10:34] LABS: ASPARTATE AMINOTRANSFERASE 72.0 U/L (15-37); CALCIUM, SERUM 8.6 mg/dL (8.5-10.1); CREATININE 0.5 mg/dL (0.6-1.3); PHOSPHORUS 3.7 mg/dL (2.5-4.9); SODIUM SERUM 137.0 mmol/L (136-145); TOTAL PROTEIN, SERUM 6.2 g/dL (6.4-8.2); UREA NITROGEN, BLOOD 9.0 mg/dL (7-18)
[2025-06-28 10:35] LABS: FIBRINOGEN ACTIVITY 155.0 Mg/dL (213-485); INR 1.66 (0.91-1.10)
[2025-06-28 10:36] LABS: LDL 50 mg/dL (0-99)
[2025-06-28] MEDS: LORAZEPAM INJ 2 MG/ML VIAL IV ONE (11:16)
[2025-06-28 11:49] LABS: EOSINOPHILS % (MANUAL) 3 % (0-4); LYMPHOCYTES % (MANUAL) 3 % (16-48); MONOCYTES % (MANUAL) 8 % (0-11.0); NEUTROPHILS % (MANUAL) 86 (42-76)
[2025-06-28 11:50] LABS: PLATELET ESTIMATE DECREASED
[2025-06-28 12:00] VITALS: BP 138/89; TEMP 99.3; O2SAT 98
[2025-06-28 16:00] VITALS: BP 137/72; TEMP 98.8; O2SAT 97
[2025-06-28] MEDS: IV NS 0.9% 1,000 ML IV PRN (18:41)
[2025-06-28 20:13] VITALS: BP 136/72; TEMP 97.5; O2SAT 99
[2025-06-29 00:34] VITALS: BP 138/75; TEMP 97.5; O2SAT 99
[2025-06-29 04:00] VITALS: BP 153/86; TEMP 97.3; O2SAT 99
[2025-06-29 07:11] LABS: FIBRINOGEN ACTIVITY 143.0 Mg/dL (213-485); INR 1.74 (0.91-1.10)
[2025-06-29 07:15] LABS: PLATELET COUNT (AUTO) 72 K/uL (150-450); RED BLOOD CELL COUNT(AUTO) 3.71 MIL/uL (4.0-5.2); RED CELL DISTRIBUTION WIDTH 21.7 % (11.5-15.0); WHITE BLOOD COUNT (AUTO) 3.1 K/uL (4.3-11.0)
[2025-06-29 07:33] LABS: ASPARTATE AMINOTRANSFERASE 77.0 U/L (15-37); CALCIUM, SERUM 8.5 mg/dL (8.5-10.1); CREATININE 0.5 mg/dL (0.6-1.3); PHOSPHORUS 4.2 mg/dL (2.5-4.9); SODIUM SERUM 139.0 mmol/L (136-145); TOTAL PROTEIN, SERUM 6.0 g/dL (6.4-8.2); UREA NITROGEN, BLOOD 10.0 mg/dL (7-18)
[2025-06-29 07:49] LABS: SERUM AMMONIA 106.0 umol/L (11-32)
[2025-06-29 08:00] VITALS: BP 132/85; TEMP 97; O2SAT 99
[2025-06-29] MEDS: Magnesium 1GM/D5W 100ML PREMIX 100 ML IV SCH (09:56)
[2025-06-29 12:00] VITALS: BP 142/97; TEMP 97.2; O2SAT 97
[2025-06-29 12:57] LABS: EOSINOPHILS % (MANUAL) 3 % (0-4); LYMPHOCYTES % (MANUAL) 10 % (16-48); MONOCYTES % (MANUAL) 9 % (0-11.0); NEUTROPHILS % (MANUAL) 78 (42-76)
[2025-06-29 12:58] LABS: PLATELET ESTIMATE DECREASED
[2025-06-29] MEDS: LACTULOSE UDC 200 G in SODIUM CHLORIDE IRRIG SOLUTION 400 ML IR SCH (14:32)
[2025-06-29] MEDS ORDERED: GADOTERATE MEGLUMINE 10 MMOL/20 ML VIAL IV ONE (15:00)
[2025-06-29 16:00] VITALS: BP 147/76; TEMP 98.2; O2SAT 97
[2025-06-29 20:00] VITALS: BP 164/84; TEMP 96.8; O2SAT 98
[2025-06-30] VITALS (8 sets, daily range): BP systolic 122–169; BP diastolic 71–111; TEMP 97.3–97.9; O2SAT 94–98
[2025-06-30 06:42] LABS: FIBRINOGEN ACTIVITY 151.0 Mg/dL (213-485); INR 1.81 (0.91-1.10)
[2025-06-30 07:00] LABS: PLATELET COUNT (AUTO) 82 K/uL (150-450); RED BLOOD CELL COUNT(AUTO) 3.95 MIL/uL (4.0-5.2); RED CELL DISTRIBUTION WIDTH 22.6 % (11.5-15.0); WHITE BLOOD COUNT (AUTO) 4.0 K/uL (4.3-11.0)
[2025-06-30 07:03] LABS: CALCIUM, SERUM 8.7 mg/dL (8.5-10.1); CREATININE 0.5 mg/dL (0.6-1.3); PHOSPHORUS 4.5 mg/dL (2.5-4.9); SODIUM SERUM 142.0 mmol/L (136-145); UREA NITROGEN, BLOOD 10.0 mg/dL (7-18)
[2025-06-30] MEDS: Magnesium 1GM/D5W 100ML PREMIX 100 ML IV SCH (10:11)
[2025-06-30 11:21] LABS: LYMPHOCYTES % (MANUAL) 9 % (16-48); MONOCYTES % (MANUAL) 10 % (0-11.0); NEUTROPHILS % (MANUAL) 81 (42-76); PLATELET ESTIMATE DECREASED
[2025-06-30] MEDS ORDERED: IOHEXOL-300 100 ML VIAL IV ONE (12:28)
[2025-06-30] MEDS ORDERED: IV NS 0.9% 250 ML IV ONE (12:30)
[2025-06-30 13:10] LABS: *SPE A/G RATIO 0.8 (0.7-1.7); *SPE ALBUMIN 2.8 g/dL (2.9-4.4); *SPE ALPHA-1-GLOBULIN 0.3 g/dL (0.0-0.4); *SPE ALPHA-2-GLOBULIN 0.5 g/dL (0.4-1.0); *SPE BETA GLOBULIN 1.2 g/dL (0.7-1.3); *SPE GLOBULIN, TOTAL 3.3 g/dL (2.2-3.9); *SPE M-SPIKE Not Observed g/dL (Not Observed); *SPE PROTEIN TOTAL 6.1 g/dL (6.0-8.5); *SPEGAMMA GLOBULIN 1.3 g/dL (0.4-1.8)
[2025-07-01] VITALS (7 sets, daily range): BP systolic 121–162; BP diastolic 75–90; TEMP 96.8–97.9; O2SAT 98–100
[2025-07-01 07:03] LABS: PLATELET COUNT (AUTO) 76 K/uL (150-450); RED BLOOD CELL COUNT(AUTO) 4.34 MIL/uL (4.0-5.2); RED CELL DISTRIBUTION WIDTH 23.4 % (11.5-15.0); SERUM AMMONIA 17.0 umol/L (11-32); WHITE BLOOD COUNT (AUTO) 2.9 K/uL (4.3-11.0)
[2025-07-01 07:05] LABS: CALCIUM, SERUM 8.5 mg/dL (8.5-10.1); CREATININE 0.4 mg/dL (0.6-1.3); PHOSPHORUS 4.1 mg/dL (2.5-4.9); SODIUM SERUM 143.0 mmol/L (136-145); UREA NITROGEN, BLOOD 10.0 mg/dL (7-18)
[2025-07-01 07:20] LABS: FIBRINOGEN ACTIVITY 148.0 Mg/dL (213-485); INR 1.7 (0.91-1.10)
[2025-07-01 11:10] LABS: EOSINOPHILS % (MANUAL) 2 % (0-4); LYMPHOCYTES % (MANUAL) 2 % (16-48); MONOCYTES % (MANUAL) 4 % (0-11.0); NEUTROPHILS % (MANUAL) 92 (42-76); PLATELET ESTIMATE DECREASED
[2025-07-01] MEDS: FUROSEMIDE 40 MG/4 ML VIAL ONE (20:34)
[2025-07-01] MEDS: LACTULOSE UDC 200 G in SODIUM CHLORIDE IRRIG SOLUTION 400 ML IR SCH (21:20)
[2025-07-02] VITALS: BP 138/94; TEMP 97.8; O2SAT 99
[2025-07-02] MEDS: IV D5/ 0.9% NACL 1,000 ML IV PRN (02:30)
[2025-07-02 04:00] VITALS: BP 157/90; TEMP 97.8; O2SAT 99
[2025-07-02 06:07] LABS: FOLIC ACID 16.6 ng/mL (>3.0)
[2025-07-02 07:30] LABS: PLATELET COUNT (AUTO) 76 K/uL (150-450); RED BLOOD CELL COUNT(AUTO) 4.11 MIL/uL (4.0-5.2); RED CELL DISTRIBUTION WIDTH 27.9 % (11.5-15.0); WHITE BLOOD COUNT (AUTO) 3.4 K/uL (4.3-11.0)
[2025-07-02 07:33] LABS: ASPARTATE AMINOTRANSFERASE 105.0 U/L (15-37); CALCIUM, SERUM 8.3 mg/dL (8.5-10.1); CREATININE 0.5 mg/dL (0.6-1.3); PHOSPHORUS 4.0 mg/dL (2.5-4.9); SODIUM SERUM 146.0 mmol/L (136-145); TOTAL PROTEIN, SERUM 5.6 g/dL (6.4-8.2); UREA NITROGEN, BLOOD 12.0 mg/dL (7-18)
[2025-07-02 08:00] VITALS: BP 168/83; TEMP 97.3; O2SAT 99
[2025-07-02 08:28] LABS: BASOPHILS % (MANUAL) 0 % (0.0-2.0); EOSINOPHILS % (MANUAL) 0 % (0-4); LYMPHOCYTES % (MANUAL) 11 % (16-48); MONOCYTES % (MANUAL) 13 % (0-11.0); NEUTROPHILS % (MANUAL) 76 (42-76); PLATELET ESTIMATE DECREASED
[2025-07-02] MEDS: POTASSIUM CL. PREMIX PERIPHER. 50 ML IV SCH (11:11)
[2025-07-02 12:00] VITALS: BP 148/78; TEMP 97.5; O2SAT 100
[2025-07-02 16:00] VITALS: BP 123/67; TEMP 97.5; O2SAT 98
[2025-07-02 20:00] VITALS: BP 155/101; TEMP 97.7; O2SAT 98
[2025-07-03] VITALS: BP 157/95; TEMP 97.5; O2SAT 98
[2025-07-03 04:00] VITALS: BP 164/107; TEMP 97.5; O2SAT 98
[2025-07-03] MEDS: hydrALAZINE HCL IV 20 MG VIAL IV PRN (04:58)
[2025-07-03 07:38] LABS: PLATELET COUNT (AUTO) 82 K/uL (150-450); RED BLOOD CELL COUNT(AUTO) 4.13 MIL/uL (4.0-5.2); RED CELL DISTRIBUTION WIDTH 30.2 % (11.5-15.0); WHITE BLOOD COUNT (AUTO) 3.2 K/uL (4.3-11.0)
[2025-07-03 07:46] LABS: FIBRINOGEN ACTIVITY 144.0 Mg/dL (213-485); INR 1.97 (0.91-1.10)
[2025-07-03 08:00] VITALS: BP 142/85; TEMP 98.4; O2SAT 98
[2025-07-03 08:02] LABS: ASPARTATE AMINOTRANSFERASE 109.0 U/L (15-37); CALCIUM, SERUM 8.2 mg/dL (8.5-10.1); CREATININE 0.4 mg/dL (0.6-1.3); PHOSPHORUS 3.3 mg/dL (2.5-4.9); SODIUM SERUM 147.0 mmol/L (136-145); TOTAL PROTEIN, SERUM 5.9 g/dL (6.4-8.2); UREA NITROGEN, BLOOD 10.0 mg/dL (7-18)
[2025-07-03 08:43] LABS: IRON, SERUM 126.0 ug/dl (50-175)
[2025-07-03 09:33] LABS: BASOPHILS % (MANUAL) 0 % (0.0-2.0); EOSINOPHILS % (MANUAL) 0 % (0-4); LYMPHOCYTES % (MANUAL) 7 % (16-48); MONOCYTES % (MANUAL) 9 % (0-11.0); NEUTROPHILS % (MANUAL) 84 (42-76); PLATELET ESTIMATE DECREASED
[2025-07-03] MEDS: POTASSIUM CL. PREMIX PERIPHER. 50 ML IV SCH (10:00)
[2025-07-03] MEDS: Magnesium 1GM/D5W 100ML PREMIX 100 ML IV SCH (11:53)
[2025-07-03 12:00] VITALS: BP 142/85; TEMP 98.4; O2SAT 98
[2025-07-03 16:00] VITALS: BP 154/87; TEMP 98.6; O2SAT 98
[2025-07-03 20:00] VITALS: BP 146/85; TEMP 98.1; O2SAT 97
[2025-07-04 00:32] VITALS: BP 145/72; TEMP 98.6; O2SAT 98
[2025-07-04 04:17] VITALS: BP 151/82; TEMP 97.5; O2SAT 98
[2025-07-04 06:48] LABS: PLATELET COUNT (AUTO) 70 K/uL (150-450); RED BLOOD CELL COUNT(AUTO) 3.88 MIL/uL (4.0-5.2); RED CELL DISTRIBUTION WIDTH 34.0 % (11.5-15.0); WHITE BLOOD COUNT (AUTO) 3.2 K/uL (4.3-11.0)
[2025-07-04 07:03] LABS: CALCIUM, SERUM 8.4 mg/dL (8.5-10.1); CREATININE 0.5 mg/dL (0.6-1.3); SODIUM SERUM 150.0 mmol/L (136-145); UREA NITROGEN, BLOOD 10.0 mg/dL (7-18)
[2025-07-04 07:07] LABS: FIBRINOGEN ACTIVITY 128.0 Mg/dL (213-485); INR 1.93 (0.91-1.10)
[2025-07-04 07:17] LABS: IRON, SERUM 92 ug/dl (50-175)
[2025-07-04 08:00] VITALS: BP 143/90; TEMP 98.4; O2SAT 97
[2025-07-04 10:50] LABS: EOSINOPHILS % (MANUAL) 1 % (0-4); LYMPHOCYTES % (MANUAL) 9 % (16-48); MONOCYTES % (MANUAL) 10 % (0-11.0); NEUTROPHILS % (MANUAL) 81 (42-76); PLATELET ESTIMATE DECREASED
[2025-07-04] MEDS: Magnesium 1GM/D5W 100ML PREMIX 100 ML IV SCH (11:05)
[2025-07-04] MEDS: POTASSIUM CL. PREMIX PERIPHER. 50 ML IV SCH (11:05)
[2025-07-04 12:00] VITALS: BP 143/90; TEMP 98.4; O2SAT 97
[2025-07-05 22:07] LABS: VITAMIN B1 THIAMINE,WB 157.9 nmol/L (66.5-200.0)
== END 2025-07-04 12:15 | disposition hospice, inpatient (51) | DRG 280 ==
LOC: ER 13:40 → TELE1 18:22 → ICU 18:41 → TELE1 06-25 15:19 → MEDSG1 07-03 09:29
PROVIDERS: ADMIT Internal Medicine
PROC: 30233R1 Transfusion of Nonautologous Platelets into Peripheral Vein, Percutaneous Approach (ICD-10-PCS; principal; 2025-06-23)
PROC: 30233N1 Transfusion of Nonautologous Red Blood Cells into Peripheral Vein, Percutaneous Approach (ICD-10-PCS; 2025-06-23)
PROC: 30233K1 Transfusion of Nonautologous Frozen Plasma into Peripheral Vein, Percutaneous Approach (ICD-10-PCS; 2025-06-23)
DX: K70.40 Alcoholic hepatic failure without coma (principal); K70.31 Alcoholic cirrhosis of liver with ascites; G92.8 Other toxic encephalopathy; E44.0 Moderate protein-calorie malnutrition; D61.818 Other pancytopenia; D68.59 Other primary thrombophilia; E88.09 Other disorders of plasma-protein metabolism, not elsewhere classified; D72.819 Decreased white blood cell count, unspecified; S06.340A Traumatic hemorrhage of right cerebrum without loss of consciousness, initial encounter; S06.1X0A Traumatic cerebral edema without loss of consciousness, initial encounter; D69.59 Other secondary thrombocytopenia; N39.0 Urinary tract infection, site not specified; K76.82 Hepatic encephalopathy; F10.129 Alcohol abuse with intoxication, unspecified; D64.9 Anemia, unspecified; E03.9 Hypothyroidism, unspecified; E11.9 Type 2 diabetes mellitus without complications; I10 Essential (primary) hypertension; F19.10 Other psychoactive substance abuse, uncomplicated; Z68.31 Body mass index [BMI] 31.0-31.9, adult; E87.1 Hypo-osmolality and hyponatremia; E86.0 Dehydration; Y90.8 Blood alcohol level of 240 mg/100 ml or more; D50.9 Iron deficiency anemia, unspecified; E78.5 Hyperlipidemia, unspecified; E83.42 Hypomagnesemia; E87.6 Hypokalemia; Z90.49 Acquired absence of other specified parts of digestive tract; E80.6 Other disorders of bilirubin metabolism; R97.0 Elevated carcinoembryonic antigen [CEA]; R29.6 Repeated falls; F14.10 Cocaine abuse, uncomplicated; Z79.84 Long term (current) use of oral hypoglycemic drugs; W19.XXXA Unspecified fall, initial encounter; Y93.9 Activity, unspecified; Y92.009 Unspecified place in unspecified non-institutional (private) residence as the place of occurrence of the external cause; R40.2362 Coma scale, best motor response, obeys commands, at arrival to emergency department; R40.2142 Coma scale, eyes open, spontaneous, at arrival to emergency department; R40.2252 Coma scale, best verbal response, oriented, at arrival to emergency department
CPT/HCPCS: 36415; 70450-TC; 70553-TC; 71045-TC; 71270-TC; 73610-TC; 73630-TC; 74018; 74178; 76700-TC; 76705-TC; 80048-TC; 80053-TC; 80061-TC; 80076-TC; 81001; 82105; 82140-TC; 82378; 82550-TC; 82607-TC; 82728-TC; 82784; 82962-TC; 83540-TC; 83735-TC; 83921; 84100-TC; 84155; 84165; 84425; 84439-TC; 84443-TC; 84481; 85027-TC; 85045-TC; 85396; 85730-TC; 86140-TC; 86225; 86235; 86301; 86317; 86334; 86431-TC; 86704; 86803; 86850-TC; 87040-TC; 87340; 87806; 93307-TC; 93970-TC; 97110-TC; 97116-TC; 97530-TC; 97535-TC; A4217; A4223; A6253; A6254; A9575; G0378; G0480; J0360; J0696; J1815; J1938; J2060; J2270; J2405; J2470; J2916; J3430; J3475; J3480; J3490; J7030; J7040; J7042; J7050; J7060; P9016; P9017; P9034; Q9967